=== PATIENT | male | born 1940 | race Caucasian/White ===

== ENCOUNTER 2018-11-06 02:36 | Emergency (ER) | payer MEDICARE, OTHER ==
--- NOTE | 2018-11-06 03:18 | EDM.PDOC ---
ED HPI GENERAL MEDICAL PROBLEM - General Stated Complaint: NEEDS A CATHETER [id number] Time Seen by Provider: 11/06/18 03:00 Source of Information: Reports: Patient History Limitations: Reports: No Limitations - History of Present Illness INITIAL COMMENTS - FREE TEXT/NARRATIVE: This 78 yo male patient reports to the Ed with lower abdominal pain. The patient reports he recently had a bladder tumor surgery and has not been able to urinate in the past 4-5 hours. The patient reports he has had the urge to urinate, but has not been able to. The patient reports prior to not being able to urinate he was having some blood in the urine. The patient is currently on Keflex after surgery. Onset: Today Duration: Hour(s):, Constant, Getting Worse Location: Reports: Abdomen Quality: Reports: Other Severity: Severe Improves with: Reports: None Worsens with: Reports: None Context: Reports: Other Associated Symptoms: Reports: No Other Symptoms Pelvic Pain Score (Numeric/FACES): 10 - Related Data Allergies Allergy/AdvReac Type Severity Reaction Status Date / Time NSAIDS (Non-Steroidal AdvReac Mild Abdominal Verified 11/06/18 03:03 Anti-Inflamma Pain Home Meds: Home Meds Ciclopirox [Penlac 8% Nail Lacquer] 1 applic TOP ASDIRECTED PRN 09/22/13 [ History] Multivitamin with Minerals [Multiple Vitamin] 1 tab PO DAILY 09/22/13 [History] Tacrolimus [Prograf] 1.5 mg PO DAILY 09/22/13 [History] Warfarin Sodium 2.5 mg PO .4XWEEK 09/22/13 [History] Warfarin Sodium 5 mg PO .3XWEEK 09/22/13 [History] amLODIPine [Norvasc] 7.5 mg PO DAILY 09/22/13 [History] Aspirin [Adult Low Dose Aspirin EC] 81 mg PO DAILY 04/20/18 [History] Glucosamine/D3/Boswellia Patricia [Osteo Bi-Flex Tablet] 1 each PO DAILY 04/20/18 [ History] LORazepam 0.5 mg PO BEDTIME 04/20/18 [History] Melatonin 3 mg PO BEDTIME 04/20/18 [History] Mycophenolate Mofetil [Cellcept] 750 mg PO BID 04/20/18 [History] [place]-3/DHA/Epa/Fish Oil [[place]-3 Fish Oil EC 1,000 mg] 1 each PO DAILY [History] Omeprazole 20 mg PO DAILY 04/20/18 [History] Zolpidem Tartrate 5 mg PO BEDTIME 04/20/18 [History] atorvaSTATin [Lipitor] 10 mg pe PO DAILY 04/20/18 [History] Past Medical History Cardiovascular History: Reports: High Cholesterol, Hypertension Respiratory History: Reports: None Gastrointestinal History: Reports: Diverticulosis Genitourinary History: Reports: Dialysis, Peritoneal, Renal Disease, Other (See Below) Other Genitourinary History: Hx of kidney transplant. Hx of renal artery stenosis. End stage renal disease Musculoskeletal History: Reports: None Neurological History: Reports: None Psychiatric History: Reports: Anxiety Hematologic History: Reports: Other (See Below) Other Hematologic History: Hx of Eosinophilia Immunologic History: Reports: None Oncologic (Cancer) History: Reports: None Dermatologic History: Reports: Other (See Below) Other Dermatologic History: Lipoma - Infectious Disease History Infectious Disease History: Reports: Chicken Pox, Measles, Mumps, Rubella - Past Surgical History Male Surgical History: Reports: None Social & Family History - Family History Family Medical History: Noncontributory - Tobacco Use Smoking Status *Q: Never Smoker - Caffeine Use Caffeine Use: Reports: Coffee - Recreational Drug Use Recreational Drug Use: No ED ROS GENERAL - Review of Systems Review Of Systems: ROS reveals no pertinent complaints other than HPI. ED EXAM, RENAL/ - Physical Exam Exam: See Below Exam Limited By: No Limitations General Appearance: Alert, WD/WN, Moderate Distress Eye Exam: Bilateral Eye: EOMI, Normal Inspection, PERRL Ears: Normal External Exam, Normal Canal, Hearing Grossly Normal, Normal TMs Nose: Normal Inspection, Normal Mucosa, No Blood Throat/Mouth: Normal Inspection, Normal Lips, Normal Teeth, Normal Gums, Normal Oropharynx, Normal Voice, No Airway Compromise Head: Atraumatic, Normocephalic Neck: Normal Inspection, Supple, Non-Tender, Full Range of Motion Respiratory/Chest: No Respiratory Distress, Lungs Clear, Normal Breath Sounds, No Accessory Muscle Use, Chest Non-Tender Cardiovascular: Normal Peripheral Pulses, Regular Rate, Rhythm, No Edema, No Gallop, No JVD, No Murmur, No Rub GI/Abdominal: Normal Bowel Sounds, Soft, No Organomegaly, No Distention, No Abnormal Bruit, No Mass, Pelvis Stable, Tender (initially, but no tenderness after catheter insertion and draining of the bladder) (Male) Exam: Deferred Rectal (Males) Exam: Deferred Back Exam: Normal Inspection, Full Range of Motion, NT Extremities: Normal Inspection, Normal Range of Motion, Non-Tender, Normal Capillary Refill, No Pedal Edema Neurological: Alert, Oriented, CN II-XII Intact, Normal Cognition, Normal Gait, Normal Reflexes, No Motor/Sensory Deficits Psychiatric: Normal Affect, Normal Mood Skin Exam: Warm, Dry, Intact, Normal Color, No Rash Lymphatic: No Adenopathy Course - Vital Signs Last Recorded V/S: Last Vital Signs Temp 37.5 C 11/06/18 03:04 Pulse 84 11/06/18 03:04 Resp 18 11/06/18 03:04 BP 128/65 11/06/18 03:04 Pulse Ox 94 L 11/06/18 03:04 - Orders/Labs/Meds Orders: Active Orders 24 hr Category Date Time Status Bladder Scan [RC] ASDIRECTED Care 11/06/18 02:42 Ordered Departure - Departure Time of Disposition: 03:15 Disposition: Home, Self-Care 01 Condition: Fair Clinical Impression: Postoperative urinary retention - Discharge Information *PRESCRIPTION DRUG MONITORING PROGRAM REVIEWED*: Not Applicable *COPY OF PRESCRIPTION DRUG MONITORING REPORT IN PATIENT DAYNE: Not Applicable Instructions: Indwelling Urinary Catheter Care, Adult, Acute Urinary Retention , Male, [id number] Forms: ED Department Discharge Care Plan Goals: The patient was advised of the examination results during the visit. A urinary catheter was placed to empty the patient's bladder. The catheter was left in place. The patient was advised to follow-up with his primary care facility on Thursday for catheter removal and further evaluation and treatment. The patient was encouraged to increase his oral fluid intake. If the patient has any additional symptoms or concerns, the patient should either return to the emergency department or visit his primary care facility. - My Orders Last 24 Hours: My Active Orders 11/06/18 02:42 Bladder Scan [RC] ASDIRECTED - Assessment/Plan Last 24 Hours: My Active Orders 11/06/18 02:42 Bladder Scan [RC] ASDIRECTED
== END 2018-11-06 03:28 | disposition home or self-care (01) ==
LOC: DL.ED 02:36
DX: N99.89 Other postprocedural complications and disorders of genitourinary system (principal); R33.8 Other retention of urine; F41.9 Anxiety disorder, unspecified; Z79.899 Other long term (current) drug therapy; Z79.01 Long term (current) use of anticoagulants; Z98.890 Other specified postprocedural states; Z88.8 Allergy status to other drugs, medicaments and biological substances
CPT/HCPCS: 51702; 51798; 99282; 99283

== ENCOUNTER 2020-03-06 14:38 | Inpatient (IN) | payer MEDICARE, OTHER ==
--- NOTE | 2020-03-06 15:05 | EDM.PDOC ---
ED HPI GENERAL MEDICAL PROBLEM - General Chief Complaint: Fever Stated Complaint: FEVER CHILLS COUGHING UP BLOOD Time Seen by Provider: 03/06/20 15:04 Source of Information: Reports: Patient, Old Records, RN, RN Notes Reviewed History Limitations: Reports: No Limitations - History of Present Illness INITIAL COMMENTS - FREE TEXT/NARRATIVE: Pt presents to ER from home by POV with c/o fever and coughing up coagulated blood. He continues to have fever, but has not coughed up much more blood since this morning. He has Hx of a renal transplant 2012, and bladder cancer with cystectomy and prostatectomy and urostomy last year. He is scheduled for pre-op for rotator cuff repair to left shoulder tomorrow. He normally coughs 3-4 times a day with clear or white sputum and has chronic dyspnea on exertion which is stable and unchanged. The only difference is coughing up coagulated blood today which he has never done before. He has never had a COVID test and denies and nausea, vomiting, abdominal pain, diarrhea, dysuria, flank pain, or worsening shortness of breath. Denies any unusual bruising. Onset: Today Location: Reports: Chest Quality: Reports: Other (Denies pain) Severity: Moderate Improves with: Reports: None Worsens with: Reports: None Associated Symptoms: Reports: No Other Symptoms Left Shoulder Pain Score (Numeric/FACES): 7 - Related Data Allergies Allergy/AdvReac Type Severity Reaction Status Date / Time NSAIDS (Non-Steroidal AdvReac Mild Abdominal Verified 03/06/20 15:30 Anti-Inflamma Pain Home Meds: Home Meds Ciclopirox [Penlac 8% Nail Lacquer] 1 applic TOP ASDIRECTED PRN 09/22/13 [History] Multivitamin with Minerals [Multiple Vitamin] 1 tab PO DAILY 09/22/13 [History] Warfarin Sodium 2.5 mg PO .4XWEEK 09/22/13 [History] Warfarin Sodium 5 mg PO .3XWEEK 09/22/13 [History] amLODIPine [Norvasc] 7.5 mg PO DAILY 09/22/13 [History] Aspirin [Adult Low Dose Aspirin EC] 81 mg PO DAILY 04/20/18 [History] Glucosamine/D3/Boswellia Patricia [Osteo Bi-Flex Tablet] 1 each PO DAILY 04/20/18 [History] LORazepam 0.5 mg PO BEDTIME 04/20/18 [History] Melatonin 3 mg PO BEDTIME 04/20/18 [History] [place]-3/DHA/Epa/Fish Oil [[place]-3 Fish Oil EC 1,000 mg] 1 each PO DAILY 04/20/18 [History] Omeprazole 20 mg PO DAILY 04/20/18 [History] Zolpidem Tartrate 5 mg PO BEDTIME 04/20/18 [History] atorvaSTATin [Lipitor] 10 mg pe PO DAILY 04/20/18 [History] mycophenolate mofetiL [Cellcept] 750 mg PO BID 04/20/18 [History] Tacrolimus [Prograf] 1 mg PO BID 03/06/20 [History] Past Medical History HEENT History: Reports: Impaired Vision Cardiovascular History: Reports: High Cholesterol, Hypertension Respiratory History: Reports: None Gastrointestinal History: Reports: Diverticulosis Genitourinary History: Reports: Dialysis, Peritoneal, Renal Disease, Urostomy, Other (See Below) Other Genitourinary History: Hx of kidney transplant. Hx of renal artery stenosis. End stage renal disease Bladder removal, clipped kidney, stoma for urination, bladder cancer Musculoskeletal History: Reports: None Neurological History: Reports: None Psychiatric History: Reports: Anxiety Hematologic History: Reports: Other (See Below) Other Hematologic History: Hx of Eosinophilia Immunologic History: Reports: None Oncologic (Cancer) History: Reports: Bladder Dermatologic History: Reports: Other (See Below) Other Dermatologic History: Lipoma - Infectious Disease History Infectious Disease History: Reports: Chicken Pox, Measles, Mumps, Rubella - Past Surgical History HEENT Surgical History: Reports: Cataract Surgery Male Surgical History: Reports: Nephrectomy Other Male Surgeries/Procedures: Kidney transplant Social & Family History - Family History Family Medical History: Noncontributory - Caffeine Use Caffeine Use: Reports: None - Living Situation & Occupation Living situation: Reports: , with Spouse Occupation: Retired ED ROS GENERAL - Review of Systems Review Of Systems: Comprehensive ROS is negative, except as noted in HPI. ED EXAM, SEPSIS - Physical Exam Exam: See Below Exam Limited By: No Limitations General Appearance: Alert, WD/WN, No Apparent Distress Eye Exam: Bilateral Eye: Normal Inspection Nose: Normal Inspection, Normal Mucosa, No Blood. No: Nasal Tenderness, Nasal Drainage Throat/Mouth: Normal Inspection, Normal Lips, Normal Oropharynx, Normal Voice, No Airway Compromise Head: Atraumatic, Normocephalic Neck: Normal Inspection, Supple, Non-Tender, Full Range of Motion Respiratory/Chest: No Respiratory Distress, No Accessory Muscle Use, Chest Non- Tender, Decreased Breath Sounds, Crackles (in B/L lower lung gutiérrez). No: Rales, Rhonchi, Wheezing, Stridor Cardiovascular: Regular Rate, Rhythm, Other (+2 pitting edema to knees (chronic/stable per pt)) GI/Abdominal Exam: Normal Bowel Sounds, Soft, Non-Tender, No Distention Back: Normal Inspection Extremities: Normal Capillary Refill, Pedal Edema, Other (Chronic left shoulder pain with decreased ROM) Neurological: Alert, Oriented, CN II-XII Intact, No Motor/Sensory Deficits Psychiatric: Normal Mood Skin: Warm, Dry, Intact, Normal Color, No Rash. No: Cyanosis, Ecchymosis, Jaundice, Petechiae, Rash Course - Vital Signs Last Recorded V/S: Last Vital Signs Temp 98.7 F 03/06/20 15:17 Pulse 96 03/06/20 15:17 Resp 16 03/06/20 15:17 BP 144/72 H 03/06/20 15:17 Pulse Ox 97 03/06/20 15:17 - Orders/Labs/Meds Orders: Active Orders 24 hr Category Date Time Status Peripheral IV Care [RC] . DIRECTED Care 03/06/20 15:07 Active CORONAVIRUS COVID-19 PCR PHL Stat Lab 03/06/20 17:50 Ordered CULTURE BLOOD [BC] Stat Lab 03/06/20 15:37 Received CULTURE BLOOD [BC] Stat Lab 03/06/20 15:42 Results Piperacillin/Tazobactam [Zosyn] 3.375 gm Med 03/06/20 17:33 Active Sodium Chloride 0.9% [Normal Saline] 100 ml IV ONETIME Sodium Chloride 0.9% [Normal Saline] 1,000 ml Med 03/06/20 17:45 Active IV ASDIRECTED Sodium Chloride 0.9% [Saline Flush] Med 03/06/20 15:07 Active 10 ml FLUSH ASDIRECTED PRN Blood Culture x2 Reflex Set [OM.PC] Stat Oth 03/06/20 15:06 Ordered Peripheral IV Insertion Adult [OM.PC] Stat Oth 03/06/20 15:06 Ordered Medication Orders Piperacillin Sod/Tazobactam (Sod 3.375 gm/ Sodium Chloride) 100 mls @ 200 mls/hr IV ONETIME ONE Stop: 03/06/20 18:02 Sodium Chloride (Normal Saline) 1,000 mls @ 150 mls/hr IV ASDIRECTED DAVID Sodium Chloride (Saline Flush) 10 ml FLUSH ASDIRECTED PRN PRN Reason: Keep Vein Open Last Admin: 03/06/20 16:46 Dose: 10 ml Documented by: MITCHEL Labs: Laboratory Tests 03/06/20 03/06/20 03/06/20 Range/Units 15:10 15:37 15:37 WBC 16.6 H (5.0-10.0) 10^3/uL RBC 4.53 L (4.6-6.2) 10^6/uL Hgb 12.6 L D (14.0-18.0) g/dL Hct 38.4 L (40.0-54.0) % MCV 84.8 D (80-100) fL MCH 27.8 (27.0-34.0) pg MCHC 32.8 L (33.0-35.0) g/dL Plt Count 436 D (150-450) 10^3/uL Neut % (Auto) 79.5 H (42.2-75.2) % Lymph % (Auto) 6.7 L (20.5-50.1) % [place] % (Auto) 13.2 H (2-8) % Eos % (Auto) 0.4 L (1.0-3.0) % Baso % (Auto) 0.2 (0.0-1.0) % PT 45.8 H (9.0-12.0) SEC INR 4.9 H (0.9-1.2) APTT 55.6 H (22.0-34.0) SEC Sodium (136-145) mmol/L Potassium (3.5-5.1) mmol/L Chloride (98-107) mmol/L Carbon Dioxide (21-32) mmol/L Anion Gap (7-13) mEq/L BUN (7-18) mg/dL Creatinine (0.70-1.30) mg/dL Est Cr Clr Drug Dosing mL/min Estimated GFR (MDRD) BUN/Creatinine Ratio (No establ ref range) Glucose (74-99) mg/dL Lactic Acid (0.4-2.0) mmol/L Calcium (8.5-10.1) mg/dL Phosphorus (2.6-4.7) mg/dL Magnesium (1.8-2.4) mg/dL Ferritin (26-388) mg/mL Total Bilirubin (0.2-1.0) mg/dL AST (15-37) U/L ALT (16-63) U/L Alkaline Phosphatase (46-116) U/L Lactate Dehydrogenase (85-227) U/L C-Reactive Protein (0.0-0.9) mg/dL B-Natriuretic Peptide (0-100) pg/ml Total Protein (6.4-8.2) g/dL Albumin (3.4-5.0) g/dL Globulin Albumin/Globulin Ratio Urine Color (YELLOW) Urine Appearance (CLEAR) Urine pH (5.0-9.0) Ur Specific [place] (1.005-1.030) Urine Protein (NEGATIVE) Urine Glucose (UA) (NEGATIVE) Urine Ketones (NEGATIVE) Urine Occult Blood (NEGATIVE) Urine Nitrite (NEGATIVE) Urine Bilirubin (NEGATIVE) Urine Urobilinogen (0.2-1.0) mg/dL Ur Leukocyte Esterase (NEGATIVE) Urine RBC /HPF Urine WBC (0-5/HPF) /HPF Ur Epithelial Cells (NOT SEEN) /HPF Triple Phos Crystals (NOT SEEN) /HPF Other Crystals (NOT SEEN) /HPF Amorphous Sediment (NOT SEEN) /HPF Urine Bacteria (0-FEW/HPF) /HPF Urine Mucus (NOT SEEN) /LPF SARS CoV-2 RNA Rapid ANA Negative (NEGATIVE) 03/06/20 03/06/20 03/06/20 Range/Units 15:37 15:37 15:37 WBC (5.0-10.0) 10^3/uL RBC (4.6-6.2) 10^6/uL Hgb (14.0-18.0) g/dL Hct (40.0-54.0) % MCV (80-100) fL MCH (27.0-34.0) pg MCHC (33.0-35.0) g/dL Plt Count (150-450) 10^3/uL Neut % (Auto) (42.2-75.2) % Lymph % (Auto) (20.5-50.1) % [place] % (Auto) (2-8) % Eos % (Auto) (1.0-3.0) % Baso % (Auto) (0.0-1.0) % PT (9.0-12.0) SEC INR (0.9-1.2) APTT (22.0-34.0) SEC Sodium 139 (136-145) mmol/L Potassium 4.5 (3.5-5.1) mmol/L Chloride 101 (98-107) mmol/L Carbon Dioxide 28 (21-32) mmol/L Anion Gap 14.5 H (7-13) mEq/L BUN 32 H (7-18) mg/dL Creatinine 2.26 H (0.70-1.30) mg/dL Est Cr Clr Drug Dosing 24.78 mL/min Estimated GFR (MDRD) 28 BUN/Creatinine Ratio 14.2 (No establ ref range) Glucose 172 H (74-99) mg/dL Lactic Acid 1.5 (0.4-2.0) mmol/L Calcium 9.2 (8.5-10.1) mg/dL Phosphorus 3.0 (2.6-4.7) mg/dL Magnesium 1.9 (1.8-2.4) mg/dL Ferritin 149 (26-388) mg/mL Total Bilirubin 1.5 H (0.2-1.0) mg/dL AST 10 L (15-37) U/L ALT 21 (16-63) U/L Alkaline Phosphatase 102 (46-116) U/L Lactate Dehydrogenase 181 (85-227) U/L C-Reactive Protein 11.9 H (0.0-0.9) mg/dL B-Natriuretic Peptide 22 (0-100) pg/ml Total Protein 7.2 (6.4-8.2) g/dL Albumin 3.2 L (3.4-5.0) g/dL Globulin 4.0 Albumin/Globulin Ratio 0.80 Urine Color (YELLOW) Urine Appearance (CLEAR) Urine pH (5.0-9.0) Ur Specific [place] (1.005-1.030) Urine Protein (NEGATIVE) Urine Glucose (UA) (NEGATIVE) Urine Ketones (NEGATIVE) Urine Occult Blood (NEGATIVE) Urine Nitrite (NEGATIVE) Urine Bilirubin (NEGATIVE) Urine Urobilinogen (0.2-1.0) mg/dL Ur Leukocyte Esterase (NEGATIVE) Urine RBC /HPF Urine WBC (0-5/HPF) /HPF Ur Epithelial Cells (NOT SEEN) /HPF Triple Phos Crystals (NOT SEEN) /HPF Other Crystals (NOT SEEN) /HPF Amorphous Sediment (NOT SEEN) /HPF Urine Bacteria (0-FEW/HPF) /HPF Urine Mucus (NOT SEEN) /LPF SARS CoV-2 RNA Rapid ANA (NEGATIVE) 03/06/20 Range/Units 17:05 WBC (5.0-10.0) 10^3/uL RBC (4.6-6.2) 10^6/uL Hgb (14.0-18.0) g/dL Hct (40.0-54.0) % MCV (80-100) fL MCH (27.0-34.0) pg MCHC (33.0-35.0) g/dL Plt Count (150-450) 10^3/uL Neut % (Auto) (42.2-75.2) % Lymph % (Auto) (20.5-50.1) % [place] % (Auto) (2-8) % Eos % (Auto) (1.0-3.0) % Baso % (Auto) (0.0-1.0) % PT (9.0-12.0) SEC INR (0.9-1.2) APTT (22.0-34.0) SEC Sodium (136-145) mmol/L Potassium (3.5-5.1) mmol/L Chloride (98-107) mmol/L Carbon Dioxide (21-32) mmol/L Anion Gap (7-13) mEq/L BUN (7-18) mg/dL Creatinine (0.70-1.30) mg/dL Est Cr Clr Drug Dosing mL/min Estimated GFR (MDRD) BUN/Creatinine Ratio (No establ ref range) Glucose (74-99) mg/dL Lactic Acid (0.4-2.0) mmol/L Calcium (8.5-10.1) mg/dL Phosphorus (2.6-4.7) mg/dL Magnesium (1.8-2.4) mg/dL Ferritin (26-388) mg/mL Total Bilirubin (0.2-1.0) mg/dL AST (15-37) U/L ALT (16-63) U/L Alkaline Phosphatase (46-116) U/L Lactate Dehydrogenase (85-227) U/L C-Reactive Protein (0.0-0.9) mg/dL B-Natriuretic Peptide (0-100) pg/ml Total Protein (6.4-8.2) g/dL Albumin (3.4-5.0) g/dL Globulin Albumin/Globulin Ratio Urine Color Yellow (YELLOW) Urine Appearance Turbid (CLEAR) Urine pH >= 9.0 (5.0-9.0) Ur Specific [place] 1.015 (1.005-1.030) Urine Protein 100 H (NEGATIVE) Urine Glucose (UA) Negative (NEGATIVE) Urine Ketones Negative (NEGATIVE) Urine Occult Blood Moderate H (NEGATIVE) Urine Nitrite Negative (NEGATIVE) Urine Bilirubin Negative (NEGATIVE) Urine Urobilinogen 0.2 (0.2-1.0) mg/dL Ur Leukocyte Esterase Negative (NEGATIVE) Urine RBC 10-20 H /HPF Urine WBC 0-5 (0-5/HPF) /HPF Ur Epithelial Cells Few (NOT SEEN) /HPF Triple Phos Crystals Few H (NOT SEEN) /HPF Other Crystals See note (NOT SEEN) /HPF Amorphous Sediment Few (NOT SEEN) /HPF Urine Bacteria Few (0-FEW/HPF) /HPF Urine Mucus Few H (NOT SEEN) /LPF SARS CoV-2 RNA Rapid ANA (NEGATIVE) Meds: Medications Generic Name Dose Route Start Last Admin Trade Name Freq PRN Reason Stop Dose Admin Piperacillin Sod/Tazobactam 100 mls @ 200 mls/hr 03/06/20 17:33 Sod 3.375 gm/ Sodium Chloride IV 03/06/20 18:02 ONETIME ONE Sodium Chloride 1,000 mls @ 150 mls/hr 03/06/20 17:45 Normal Saline IV ASDIRECTED DAVID Sodium Chloride 10 ml 03/06/20 15:07 03/06/20 16:46 Saline Flush FLUSH 10 ml ASDIRECTED PRN Administration Keep Vein Open Discontinued Medications Generic Name Dose Route Start Last Admin Trade Name Freq PRN Reason Stop Dose Admin Levofloxacin/Dextrose 500 mg/ 100 mls @ 100 mls/hr 03/06/20 16:33 03/06/20 16:45 Premix IV 03/06/20 17:32 100 mls/hr ONETIME ONE Administration - Radiology Interpretation Free Text/Narrative:: CT Chest: Isolated tiny nodule RLL. No signs of heart failure, pneumonia, or mass per Rad. report. - Re-Assessments/Exams Free Text/Narrative Re-Assessment/Exam: 03/06/20 18:[address] Paulson via phone. He advises pt should be admitted to [facility] without transfer to a higher level of care with IV hydration, Zosyn + Vanc omycin, observation of the high INR. Dr. Hernandez agrees to admit the pt, but is having technical problems with the computer and will ask Dr. Alejandre to take care of the admit at shift change. Departure - Departure Time of Disposition: 18:08 (admit to Dr. Hernandez) Disposition: Refer to Observation Condition: Undetermined Clinical Impression: Fever of unknown origin, Supratherapeutic INR - Discharge Information *PRESCRIPTION DRUG MONITORING PROGRAM REVIEWED*: Not Applicable *COPY OF PRESCRIPTION DRUG MONITORING REPORT IN PATIENT DAYNE: Not Applicable Forms: ED Department Discharge Sepsis Event Note (ED) - Focused Exam Vital Signs: Vital Signs Temp Pulse Resp BP Pulse Ox 03/06/20 15:17 98.7 F 96 16 144/72 H 97 - My Orders Last 24 Hours: My Active Orders 03/06/20 15:06 Blood Culture x2 Reflex Set [OM.PC] Stat Peripheral IV Insertion Adult [OM.PC] Stat 03/06/20 15:07 Peripheral IV Care [RC] . DIRECTED Sodium Chloride 0.9% [Saline Flush] 10 ml FLUSH ASDIRECTED PRN 03/06/20 15:37 CULTURE BLOOD [BC] Stat 03/06/20 15:42 CULTURE BLOOD [BC] Stat 03/06/20 17:33 Piperacillin/Tazobactam [Zosyn] 3.375 gm Sodium Chloride 0.9% [Normal Saline] 100 ml IV ONETIME 03/06/20 17:45 Sodium Chloride 0.9% [Normal Saline] 1,000 ml IV ASDIRECTED 03/06/20 17:50 CORONAVIRUS COVID-19 PCR PHL Stat - Assessment/Plan Last 24 Hours: My Active Orders 03/06/20 15:06 Blood Culture x2 Reflex Set [OM.PC] Stat Peripheral IV Insertion Adult [OM.PC] Stat 03/06/20 15:07 Peripheral IV Care [RC] . DIRECTED Sodium Chloride 0.9% [Saline Flush] 10 ml FLUSH ASDIRECTED PRN 03/06/20 15:37 CULTURE BLOOD [BC] Stat 03/06/20 15:42 CULTURE BLOOD [BC] Stat 03/06/20 17:33 Piperacillin/Tazobactam [Zosyn] 3.375 gm Sodium Chloride 0.9% [Normal Saline] 100 ml IV ONETIME 03/06/20 17:45 Sodium Chloride 0.9% [Normal Saline] 1,000 ml IV ASDIRECTED 03/06/20 17:50 CORONAVIRUS COVID-19 PCR PHL Stat
[2020-03-06] MEDS ORDERED: Sodium Chloride 0.9% 10 ML Syringe FLUSH PRN (15:07)
[2020-03-06 16:24] LABS: ANION GAP 14.5 mEq/L (7-13); PTT,PARTIAL THROMBOPLSTIN TIME 55.6 SEC (22.0-34.0)
[2020-03-06] MEDS ORDERED: Levofloxacin/Dextrose 5%-Water 500 MG in Premix Bag 1 BAG IV ONE (16:33)
--- NOTE | 2020-03-06 16:52 | CT ---
EXAMINATION: Chest wo Cont SEX: Male AGE: 79 years CLINICAL HISTORY: 79-year-old 175 pound hypertensive male with history of bladder cancer (2019) and earlier renal transplant (2013) who presents now with COUGH, FEVER AND HEMOPTYSIS. Note: This Immunosuppressed patient is currently COVID NEGATIVE. Scan technique: Volume acquisition of data emergency unenhanced CT scan of the chest (bony thorax, lungs and mediastinum) obtained with patient lying supine on the Siemens multislice scanner [place], [place]. All data archived in the PACS system for storage, reformatting axial/sagittal/coronal planes and study (lung/mediastinal and normal soft tissue windows). Interpretation: 1. Bilateral hydronephrosis with traumatic cortical thinning both kidneys. Gallbladder, unenhanced liver, stomach, spleen and pancreas unremarkable. Small hiatus hernia. 2. Normal cardiac silhouette. Coronary artery calcifications. No pericardial or pleural effusion. No pulmonary vascular congestion or alveolar edema. Normal caliber thoracic aorta. 3. Bibasilar platelike atelectasis. Small nodular density (central cavitation?) right lung base demonstrated on Coronal slice #44; axial slice #43. No other parenchymal lung nodule or mass lesion. No lobar pneumonia. 4. Peribronchial "cuffing". No peripheral "groundglass" density or pleural-based "wedge shaped" infarcts. 5. Mild kyphoscoliosis; multilevel disc disease; hypertrophic spondylosis dorsal spine. CONCLUSION: Isolated tiny nodule RLL. (See above). No signs of heart failure, lobar pneumonia or mass.
[2020-03-06] MEDS ORDERED: Piperacillin/Tazobactam 3.375 GM in Sodium Chloride 0.9% 100 ML IV ONE (17:33)
[2020-03-06] MEDS ORDERED: Sodium Chloride 0.9% 1,000 ML IV SCH (17:45)
[2020-03-06] MEDS ORDERED: Ondansetron 4 MG/2 ML SDV IVPUSH PRN (20:43)
[2020-03-06] MEDS ORDERED: Ondansetron 4 MG Tab.DIS PO PRN (20:43)
[2020-03-06] MEDS ORDERED: CICLOPIROX TOP PRN (20:50)
[2020-03-06] MEDS: Melatonin 3 MG Tab PO SCH (21:39)
[2020-03-06] MEDS: LORazepam 0.5 MG Tab PO SCH (21:39)
[2020-03-06] MEDS: amLODIPine 5 MG Tab PO SCH (21:40)
[2020-03-06] MEDS: Lactated Ringers 1,000 ML IV SCH (21:51)
[2020-03-07] MEDS: Piperacillin/Tazobactam 3.375 GM in Sodium Chloride 0.9% 100 ML IV SCH ×4 (03:24→20:29)
[2020-03-07] MEDS: Omeprazole 20 MG Cap.CR PO SCH (05:57)
[2020-03-07] MEDS: Lactated Ringers 1,000 ML IV SCH ×2 (06:21→16:30)
[2020-03-07 07:15] LABS: ANION GAP 12.4 mEq/L (7-13)
--- NOTE | 2020-03-07 08:51 | PCM.HP ---
H&P History of Present Illness - General Date of Service: 03/06/20 Admit Problem/Dx: Admission Diagnosis/Problem Admission Diagnosis/Problem Fever - History of Present Illness Initial Comments - Free Text/Narative: Mr. 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 Patient states that he has had chills for about a week. Patient reports that he coughed up blood in the morning and decided to come to the ED. States that he received renal transplant in 2012. Developed bladder cancer and underwent cystectomy and prostatectomy with ileal conduit last year. Reports that he has chronic cough at baseline the sputum has always been clear. Has dyspnea on exertion at baseline and this is unchanged. He denies any nausea, vomiting, diarrhea, constipation, melena, hematochezia, vision changes, hematuria, chest pain, or any acute symptoms. In the ED, patient was noted to have elevated creatinine. His PCP was called who indicated that he can be admitted here and started on antibiotics and IV fluids. Left Shoulder Pain Score (Numeric/FACES): 6 - Related Data Allergies/Adverse Reactions: Allergies Allergy/AdvReac Type Severity Reaction Status Date / Time NSAIDS (Non-Steroidal AdvReac Mild Abdominal Verified 03/06/20 18:13 Anti-Inflamma Pain Home Medications: Home Meds Ciclopirox [Penlac 8% Nail Lacquer] 1 applic TOP ASDIRECTED PRN 09/22/13 [History] Multivitamin with Minerals [Multiple Vitamin] 1 tab PO DAILY 09/22/13 [History] Warfarin Sodium 2.5 mg PO .4XWEEK 09/22/13 [History] Warfarin Sodium 5 mg PO .3XWEEK 09/22/13 [History] amLODIPine [Norvasc] 7.5 mg PO BEDTIME 09/22/13 [History] Aspirin [Adult Low Dose Aspirin EC] 81 mg PO DAILY 04/20/18 [History] LORazepam 0.5 mg PO BEDTIME 04/20/18 [History] Melatonin 3 mg PO BEDTIME 04/20/18 [History] [place]-3/DHA/Epa/Fish Oil [[place]-3 Fish Oil EC 1,000 mg] 1 each PO DAILY 04/20/18 [History] Omeprazole 20 mg PO DAILY 04/20/18 [History] atorvaSTATin [Lipitor] 10 mg pe PO DAILY 04/20/18 [History] Tacrolimus 2 mg PO BID 03/06/20 [History] Past Medical History HEENT History: Reports: Impaired Vision Cardiovascular History: Reports: High Cholesterol, Hypertension Respiratory History: Reports: None Gastrointestinal History: Reports: Diverticulosis Genitourinary History: Reports: Dialysis, Peritoneal, Renal Disease, Urostomy, Other (See Below) Other Genitourinary History: Hx of kidney transplant. Hx of renal artery stenosis. End stage renal disease Bladder removal, clipped kidney, stoma for urination, bladder cancer Musculoskeletal History: Reports: None Neurological History: Reports: None Psychiatric History: Reports: Anxiety Hematologic History: Reports: Other (See Below) Other Hematologic History: Hx of Eosinophilia Immunologic History: Reports: None Oncologic (Cancer) History: Reports: Bladder, Other (See Below) Other Oncologic History: skin cancer hx Dermatologic History: Reports: Other (See Below) Other Dermatologic History: Lipoma - Infectious Disease History Infectious Disease History: Reports: Chicken Pox, Measles, Mumps, Rubella - Past Surgical History HEENT Surgical History: Reports: Cataract Surgery Male Surgical History: Reports: Nephrectomy Other Male Surgeries/Procedures: Kidney transplant Social & Family History - Family History Family Medical History: Noncontributory - Tobacco Use Smoking Status *Q: Former Smoker Used Tobacco, but Quit: Yes Month/Year Tobacco Last Used: 1986 - Caffeine Use Caffeine Use: Reports: Coffee - Recreational Drug Use Recreational Drug Use: No - Living Situation & Occupation Living situation: Reports: , with Spouse Occupation: Retired H&P Review of Systems - Review of Systems: Review Of Systems: Comprehensive ROS is negative, except as noted in HPI. Exam - Exam Exam: See Below - Vital Signs Vital Signs: Last Vital Signs Temp 99 F 03/07/20 04:00 Pulse 64 03/07/20 04:00 Resp 20 03/07/20 04:00 BP 131/65 03/07/20 04:00 Pulse Ox 97 03/07/20 04:00 Weight: 170 lb - Exam General: Alert, Oriented, Cooperative, Mild Distress HEENT: Conjunctiva Clear, Hearing Intact, Mucosa Moist & [place] Neck: Supple, Trachea Midline Lungs: Clear to Auscultation, Normal Respiratory Effort Cardiovascular: Regular Rate, Regular Rhythm GI/Abdominal Exam: Normal Bowel Sounds, Soft, No Distention, Other (Abdominal surgical scars. Ileal conduit. Clear yellow urine in ileostomy bag.) Extremities: Normal Inspection, Non-Tender, No Pedal Edema Skin: Warm, Dry, Intact Neuro Extensive - Mental Status: Alert, Oriented x3, Normal Mood/Affect Psychiatric: Alert, Normal Affect, Normal Mood - Patient Data Lab Results Last 24 hrs: Laboratory Results - last 24 hr 03/06/20 03/06/20 03/06/20 Range/Units 15:10 15:37 15:37 WBC 16.6 H (5.0-10.0) 10^3/uL RBC 4.53 L (4.6-6.2) 10^6/uL Hgb 12.6 L D (14.0-18.0) g/dL Hct 38.4 L (40.0-54.0) % MCV 84.8 D (80-100) fL MCH 27.8 (27.0-34.0) pg MCHC 32.8 L (33.0-35.0) g/dL Plt Count 436 D (150-450) 10^3/uL Neut % (Auto) 79.5 H (42.2-75.2) % Lymph % (Auto) 6.7 L (20.5-50.1) % Barnes % (Auto) 13.2 H (2-8) % Eos % (Auto) 0.4 L (1.0-3.0) % Baso % (Auto) 0.2 (0.0-1.0) % PT 45.8 H (9.0-12.0) SEC INR 4.9 H (0.9-1.2) APTT 55.6 H (22.0-34.0) SEC Sodium (136-145) mmol/L Potassium (3.5-5.1) mmol/L Chloride (98-107) mmol/L Carbon Dioxide (21-32) mmol/L Anion Gap (7-13) mEq/L BUN (7-18) mg/dL Creatinine (0.70-1.30) mg/dL Est Cr Clr Drug Dosing mL/min Estimated GFR (MDRD) BUN/Creatinine Ratio (No establ ref range) Glucose (74-99) mg/dL Lactic Acid (0.4-2.0) mmol/L Calcium (8.5-10.1) mg/dL Phosphorus (2.6-4.7) mg/dL Magnesium (1.8-2.4) mg/dL Ferritin (26-388) mg/mL Total Bilirubin (0.2-1.0) mg/dL AST (15-37) U/L ALT (16-63) U/L Alkaline Phosphatase (46-116) U/L Lactate Dehydrogenase (85-227) U/L C-Reactive Protein (0.0-0.9) mg/dL B-Natriuretic Peptide (0-100) pg/ml Total Protein (6.4-8.2) g/dL Albumin (3.4-5.0) g/dL Globulin Albumin/Globulin Ratio Urine Color (YELLOW) Urine Appearance (CLEAR) Urine pH (5.0-9.0) Ur Specific [place] (1.005-1.030) Urine Protein (NEGATIVE) Urine Glucose (UA) (NEGATIVE) Urine Ketones (NEGATIVE) Urine Occult Blood (NEGATIVE) Urine Nitrite (NEGATIVE) Urine Bilirubin (NEGATIVE) Urine Urobilinogen (0.2-1.0) mg/dL Ur Leukocyte Esterase (NEGATIVE) Urine RBC /HPF Urine WBC (0-5/HPF) /HPF Ur Epithelial Cells (NOT SEEN) /HPF Triple Phos Crystals (NOT SEEN) /HPF Other Crystals (NOT SEEN) /HPF Amorphous Sediment (NOT SEEN) /HPF Urine Bacteria (0-FEW/HPF) /HPF Urine Mucus (NOT SEEN) /LPF SARS CoV-2 RNA Rapid ANA Negative (NEGATIVE) 03/06/20 03/06/20 03/06/20 Range/Units 15:37 15:37 15:37 WBC (5.0-10.0) 10^3/uL RBC (4.6-6.2) 10^6/uL Hgb (14.0-18.0) g/dL Hct (40.0-54.0) % MCV (80-100) fL MCH (27.0-34.0) pg MCHC (33.0-35.0) g/dL Plt Count (150-450) 10^3/uL Neut % (Auto) (42.2-75.2) % Lymph % (Auto) (20.5-50.1) % Barnes % (Auto) (2-8) % Eos % (Auto) (1.0-3.0) % Baso % (Auto) (0.0-1.0) % PT (9.0-12.0) SEC INR (0.9-1.2) APTT (22.0-34.0) SEC Sodium 139 (136-145) mmol/L Potassium 4.5 (3.5-5.1) mmol/L Chloride 101 (98-107) mmol/L Carbon Dioxide 28 (21-32) mmol/L Anion Gap 14.5 H (7-13) mEq/L BUN 32 H (7-18) mg/dL Creatinine 2.26 H (0.70-1.30) mg/dL Est Cr Clr Drug Dosing 24.78 mL/min Estimated GFR (MDRD) 28 BUN/Creatinine Ratio 14.2 (No establ ref range) Glucose 172 H (74-99) mg/dL Lactic Acid 1.5 (0.4-2.0) mmol/L Calcium 9.2 (8.5-10.1) mg/dL Phosphorus 3.0 (2.6-4.7) mg/dL Magnesium 1.9 (1.8-2.4) mg/dL Ferritin 149 (26-388) mg/mL Total Bilirubin 1.5 H (0.2-1.0) mg/dL AST 10 L (15-37) U/L ALT 21 (16-63) U/L Alkaline Phosphatase 102 (46-116) U/L Lactate Dehydrogenase 181 (85-227) U/L C-Reactive Protein 11.9 H (0.0-0.9) mg/dL B-Natriuretic Peptide 22 (0-100) pg/ml Total Protein 7.2 (6.4-8.2) g/dL Albumin 3.2 L (3.4-5.0) g/dL Globulin 4.0 Albumin/Globulin Ratio 0.80 Urine Color (YELLOW) Urine Appearance (CLEAR) Urine pH (5.0-9.0) Ur Specific [place] (1.005-1.030) Urine Protein (NEGATIVE) Urine Glucose (UA) (NEGATIVE) Urine Ketones (NEGATIVE) Urine Occult Blood (NEGATIVE) Urine Nitrite (NEGATIVE) Urine Bilirubin (NEGATIVE) Urine Urobilinogen (0.2-1.0) mg/dL Ur Leukocyte Esterase (NEGATIVE) Urine RBC /HPF Urine WBC (0-5/HPF) /HPF Ur Epithelial Cells (NOT SEEN) /HPF Triple Phos Crystals (NOT SEEN) /HPF Other Crystals (NOT SEEN) /HPF Amorphous Sediment (NOT SEEN) /HPF Urine Bacteria (0-FEW/HPF) /HPF Urine Mucus (NOT SEEN) /LPF SARS CoV-2 RNA Rapid ANA (NEGATIVE) 03/06/20 03/07/20 03/07/20 Range/Units 17:05 06:23 06:23 WBC 11.5 H (5.0-10.0) 10^3/uL RBC 3.83 L (4.6-6.2) 10^6/uL Hgb 10.5 L D (14.0-18.0) g/dL Hct 32.2 L (40.0-54.0) % MCV 84.1 (80-100) fL MCH 27.4 (27.0-34.0) pg MCHC 32.6 L (33.0-35.0) g/dL Plt Count 376 (150-450) 10^3/uL Neut % (Auto) (42.2-75.2) % Lymph % (Auto) (20.5-50.1) % Barnes % (Auto) (2-8) % Eos % (Auto) (1.0-3.0) % Baso % (Auto) (0.0-1.0) % PT (9.0-12.0) SEC INR (0.9-1.2) APTT (22.0-34.0) SEC Sodium 141 (136-145) mmol/L Potassium 4.4 (3.5-5.1) mmol/L Chloride 106 (98-107) mmol/L Carbon Dioxide 27 (21-32) mmol/L Anion Gap 12.4 (7-13) mEq/L BUN 28 H (7-18) mg/dL Creatinine 1.76 H (0.70-1.30) mg/dL Est Cr Clr Drug Dosing 31.82 mL/min Estimated GFR (MDRD) 38 BUN/Creatinine Ratio (No establ ref range) Glucose 92 (74-99) mg/dL Lactic Acid (0.4-2.0) mmol/L Calcium 8.5 (8.5-10.1) mg/dL Phosphorus 3.7 (2.6-4.7) mg/dL Magnesium 1.8 (1.8-2.4) mg/dL Ferritin (26-388) mg/mL Total Bilirubin (0.2-1.0) mg/dL AST (15-37) U/L ALT (16-63) U/L Alkaline Phosphatase (46-116) U/L Lactate Dehydrogenase (85-227) U/L C-Reactive Protein (0.0-0.9) mg/dL B-Natriuretic Peptide (0-100) pg/ml Total Protein (6.4-8.2) g/dL Albumin (3.4-5.0) g/dL Globulin Albumin/Globulin Ratio Urine Color Yellow (YELLOW) Urine Appearance Turbid (CLEAR) Urine pH >= 9.0 (5.0-9.0) Ur Specific [place] 1.015 (1.005-1.030) Urine Protein 100 H (NEGATIVE) Urine Glucose (UA) Negative (NEGATIVE) Urine Ketones Negative (NEGATIVE) Urine Occult Blood Moderate H (NEGATIVE) Urine Nitrite Negative (NEGATIVE) Urine Bilirubin Negative (NEGATIVE) Urine Urobilinogen 0.2 (0.2-1.0) mg/dL Ur Leukocyte Esterase Negative (NEGATIVE) Urine RBC 10-20 H /HPF Urine WBC 0-5 (0-5/HPF) /HPF Ur Epithelial Cells Few (NOT SEEN) /HPF Triple Phos Crystals Few H (NOT SEEN) /HPF Other Crystals See note (NOT SEEN) /HPF Amorphous Sediment Few (NOT SEEN) /HPF Urine Bacteria Few (0-FEW/HPF) /HPF Urine Mucus Few H (NOT SEEN) /LPF SARS CoV-2 RNA Rapid ANA (NEGATIVE) Result Diagrams: 03/07/20 06:23 03/07/20 06:23 [place] Results Last 24 hrs: Microbiology 03/06/20 15:42 Anaerobic Blood Culture - Final Blood - Venous - Lab Draw *Q Meaningful Use (ADM) - VTE *Q VTE Anticoagulation Contraindications: Med/TX Not Indicated/Need - Problem List (1) LONNY (acute kidney injury) SNOMED Code(s): 43404774, 27613990 ICD Code: N17.9 - ACUTE KIDNEY FAILURE, UNSPECIFIED Status: Acute Current Visit: Yes (2) Severe sepsis with acute organ dysfunction SNOMED Code(s): 45065515 ICD Code: A41.9 - SEPSIS, UNSPECIFIED ORGANISM; R65.20 - SEVERE SEPSIS WITHOUT SEPTIC SHOCK Status: Acute Current Visit: Yes (3) Fever of unknown origin SNOMED Code(s): 4589615 ICD Code: R50.9 - FEVER, UNSPECIFIED Status: Acute Current Visit: No (4) Hx of bladder cancer SNOMED Code(s): 754082850, 534071713 ICD Code: Z85.51 - PERSONAL HISTORY OF MALIGNANT NEOPLASM OF BLADDER Status: Acute Current Visit: No (5) Renal transplant recipient SNOMED Code(s): 817394804, 497659853 ICD Code: Z94.0 - KIDNEY TRANSPLANT STATUS Status: Acute Current Visit: No (6) Sepsis SNOMED Code(s): 56366532 ICD Code: A41.9 - SEPSIS, UNSPECIFIED ORGANISM Status: Acute Current Visit: No Qualifiers: Sepsis type: sepsis due to unspecified organism Sepsis acute organ dysfunction status: unspecified Qualified Code(s): A41.9 - Sepsis, unspecified organism (7) Supratherapeutic INR SNOMED Code(s): 547381929 ICD Code: R79.1 - ABNORMAL COAGULATION PROFILE Status: Acute Current Visit: No Problem List Initiated/Reviewed/Updated: Yes Orders Last 24hrs: Active Orders 24 hr Category Date Time Status Admission Diagnosis [ADT] Routine ADT 03/06/20 18:00 Ordered Admission Status [Patient Status] [ADT] Routine ADT 03/06/20 18:00 Active Antiembolic Devices [RC] 08,20 Care 03/07/20 08:29 Active Influenza Vaccine Charge [RC] .DISCHARGE Care 03/06/20 18:19 Active Intake and Output [RC] QSHIFT Care 03/06/20 20:45 Active Oxygen Therapy [RC] PRN Care 03/06/20 20:44 Active VTE/DVT Education [RC] PER UNIT ROUTINE Care 03/06/20 20:44 Active Vital Signs [RC] Q4H Care 03/06/20 20:44 Active 2 Gram Sodium Diet [DIET] Diet 03/06/20 Dinner Active CULTURE BLOOD [BC] Stat Lab 03/06/20 15:37 Received CULTURE BLOOD [BC] Stat Lab 03/06/20 15:42 Results Acetaminophen [TylenoL] Med 03/06/20 20:43 Active 650 mg PO Q4H PRN Aspirin [Halfprin] Med 03/07/20 09:00 Active 81 mg PO DAILY Ciclopirox [Penlac 8% Nail Lacquer] Med 03/06/20 20:50 Pending 1 applic TOP ASDIRECTED PRN Docusate Sodium/Sennosides [Senna Plus] Med 03/06/20 20:43 Active 1 tab PO BEDTIME PRN LORazepam [Ativan] Med 03/06/20 21:00 Active 0.5 mg PO BEDTIME Lactated Ringers [Ringers, Lactated] 1,000 ml Med 03/06/20 20:45 Active IV ASDIRECTED Melatonin Med 03/06/20 21:00 Active 3 mg PO BEDTIME Multivitamins,Therapeutic [Thera] Med 03/07/20 09:00 Active 1 each PO DAILY [place]-3/DHA/Epa/Fish Oil [[place]-3 Fish Oil EC 1,000 mg] Med 03/07/20 09:00 Pending 1 each PO DAILY Omeprazole Med 03/07/20 06:00 Active 20 mg PO ACBREAKFAST Ondansetron [Zofran ODT] Med 03/06/20 20:43 Active 4 mg PO Q6H PRN Ondansetron [Zofran] Med 03/06/20 20:43 Active 4 mg IVPUSH Q6H PRN Pharmacy to Dose - InFluenza V [Pharmacy to Dose - Med 03/06/20 18:18 Pending InFluenza Vaccine] 1 each IM ONETIME PRN Pharmacy to Dose - Warfarin Med 03/06/20 21:00 Pending 1 dose .XX ASDIRECTED Piperacillin/Tazobactam [Zosyn] 3.375 gm Med 03/07/20 03:00 Active Sodium Chloride 0.9% [Normal Saline] 100 ml IV Q6H Sodium Chloride 0.9% [Saline Flush] Med 03/06/20 15:07 Active 10 ml FLUSH ASDIRECTED PRN Tacrolimus Med 03/06/20 21:00 Pending 2 mg PO BID amLODIPine [Norvasc] Med 03/06/20 21:00 Active 7.5 mg PO BEDTIME atorvaSTATin [Lipitor] Med 03/07/20 09:00 Active 10 mg PO DAILY levoFLOXacin [Levaquin] Med 03/08/20 17:00 Active 500 mg PO Q48H Anticoagulation Contraindications VTE [AST] Per Unit Oth 03/06/20 20:43 Orde red Routine Blood Culture x2 Reflex Set [OM.PC] Stat Oth 03/06/20 15:06 Ordered Peripheral IV Insertion Adult [OM.PC] Stat Oth 03/06/20 15:06 Ordered EDDIE Hose [Antiembolic Hose] [OM.PC] Routine Oth 03/07/20 08:29 Ordered Resuscitation Status Routine Resus Stat 03/06/20 20:43 Ordered Medication Orders Acetaminophen (Tylenol) 650 mg PO Q4H PRN PRN Reason: Pain (Mild 1-3)/fever Amlodipine Besylate (Norvasc) 7.5 mg PO BEDTIME [facility] Last Admin: 03/06/20 21:40 Dose: 7.5 mg Documented by: NATHAN Aspirin (Halfprin) 81 mg PO DAILY [facility] Atorvastatin Calcium (Lipitor) 10 mg PO DAILY [facility] Lactated Ringer's (Ringers, Lactated) 1,000 mls @ 125 mls/hr IV ASDIRECTED [facility] Last Admin: 03/07/20 06:21 Dose: 125 mls/hr Documented by: Infusion: 03/07/20 05:51 Dose: 125 mls/hr Documented by: Admin: 03/06/20 21:51 Dose: 125 mls/hr Documented by: NATHAN Piperacillin Sod/Tazobactam (Sod 3.375 gm/ Sodium Chloride) 100 mls @ 200 mls/hr IV Q6H [facility] Last Admin: 03/07/20 03:24 Dose: 200 mls/hr Documented by: NATHAN Influenza Virus Vaccine (Pharmacy To Dose - Influenza Vaccine) 1 each IM ONETIME PRN PRN Reason: on discharge Levofloxacin (Levaquin) 500 mg PO Q48H [facility] Lorazepam (Ativan) 0.5 mg PO BEDTIME [facility] Last Admin: 03/06/20 21:39 Dose: 0.5 mg Documented by: NATHAN Melatonin (Melatonin) 3 mg PO BEDTIME [facility] Last Admin: 03/06/20 21:39 Dose: 3 mg Documented by: NATHAN Multivitamins (Thera) 1 each PO DAILY [facility] Non-Formulary Medication (Ciclopirox [Penlac 8% Nail Lacquer]) 1 applic TOP ASDIRECTED PRN PRN Reason: Other Non-Formulary Medication ([place]-3/Dha/Epa/Fish Oil [[place]-3 Fish Oil Ec 1,000 Mg]) 1 each PO DAILY [facility] Non-Formulary Medication (Tacrolimus) 2 mg PO BID [facility] Omeprazole (Omeprazole) 20 mg PO ACBREAKFAST DAVID Last Admin: 03/07/20 05:57 Dose: 20 mg Documented by: NATHAN Ondansetron HCl (Zofran Odt) 4 mg PO Q6H PRN PRN Reason: nausea, able to take PO Ondansetron HCl (Zofran) 4 mg IVPUSH Q6H PRN PRN Reason: Nausea/Vomiting Senna/Docusate Sodium (Senna Plus) 1 tab PO BEDTIME PRN PRN Reason: Constipation Last Admin: 03/06/20 21:40 Dose: 1 tab Documented by: NATHAN Sodium Chloride (Saline Flush) 10 ml FLUSH ASDIRECTED PRN PRN Reason: Keep Vein Open Last Admin: 03/06/20 16:46 Dose: 10 ml Documented by: MITCHEL Warfarin Sodium (Pharmacy To Dose - Warfarin) 1 dose .XX ASDIRECTED [facility] Assessment/Plan Comment:: #Severe sepsis with acute organ dysfunction: Patient with tachypnea and fever with temperature of 100.4 in the ED. With associated acute kidney injury. ED provider discussed with patient's primary care provider who recommended starting patient on antibiotics and IV fluids We will continue Levaquin and Zosyn Follow-up on cultures #History of DVT #Supratherapeutic INR Pharmacy to dose warfarin #Acquired single kidney #Status post disease donor kidney transplant Patient had transplant in July 15, 2012. Patient is on only Prograf for immunosuppression Not on CellCept or prednisone Patient's primary care provider our office hospitalization Continue to monitor renal function Avoid nephrotoxins #LONNY on CKD stage III: Patient's creatinine on presentation was 2.26. Seems to be higher than patient's baseline of 1.7 Continue to monitor renal function Avoid nephrotoxins Continue IV fluids DVT prophylaxis: On warfarin, pharmacy to dose GI prophylaxis: General diet CODE STATUS: Full code per patient and family preference.
[2020-03-07] MEDS: Multivitamins,Therapeutic Tab PO SCH (08:58)
[2020-03-07] MEDS ORDERED: EPA PO SCH (09:00)
[2020-03-07] MEDS ORDERED: DHA PO SCH (09:00)
[2020-03-07] MEDS ORDERED: atorvaSTATin 10 MG Tab PO SCH (09:00)
[2020-03-07] MEDS ORDERED: OMEGA PO SCH (09:00)
[2020-03-07] MEDS ORDERED: FISH OIL PO SCH (09:00)
[2020-03-07] MEDS ORDERED: Aspirin 81 MG Tab.EC PO SCH (09:00)
[2020-03-07] MEDS ORDERED: [UNRECOGNIZED DRUG - OTHER] PO SCH (09:00)
[2020-03-07] MEDS: TACROLIMUS 1 MG PO SCH ×3 (09:00→20:30)
--- NOTE | 2020-03-07 16:00 | PCM.PN ---
- General Info Date of Service: 03/07/20 Admission Dx/Problem (Free Text): Admission Diagnosis/Problem Admission Diagnosis/Problem Fever Subjective Update: No acute events overnight. Afebrile. No n/v/d/c, or hematuria. No chest pain or shortness of breath, no recurrence of hemoptysis. - Patient Data Vitals - Most Recent: Last Vital Signs Temp 98.8 F 03/07/20 12:00 Pulse 65 03/07/20 12:00 Resp 18 03/07/20 12:00 BP 138/76 03/07/20 12:00 Pulse Ox 96 03/07/20 12:00 Weight - Most Recent: 170 lb I&O - Last 24 Hours: Intake & Output 03/07/20 03/07/20 03/07/20 06:59 14:59 22:59 Intake Total 1380 980 105 Output Total 1850 1100 Balance -470 -120 105 Lab Results Last 24 Hours: Laboratory Results - last 24 hr 03/06/20 03/06/20 03/06/20 Range/Units 15:37 15:37 15:37 WBC 16.6 H (5.0-10.0) 10^3/uL RBC 4.53 L (4.6-6.2) 10^6/uL Hgb 12.6 L D (14.0-18.0) g/dL Hct 38.4 L (40.0-54.0) % MCV 84.8 D (80-100) fL MCH 27.8 (27.0-34.0) pg MCHC 32.8 L (33.0-35.0) g/dL Plt Count 436 D (150-450) 10^3/uL Neut % (Auto) 79.5 H (42.2-75.2) % Lymph % (Auto) 6.7 L (20.5-50.1) % [place] % (Auto) 13.2 H (2-8) % Eos % (Auto) 0.4 L (1.0-3.0) % Baso % (Auto) 0.2 (0.0-1.0) % PT 45.8 H (9.0-12.0) SEC INR 4.9 H (0.9-1.2) APTT 55.6 H (22.0-34.0) SEC Sodium 139 (136-145) mmol/L Potassium 4.5 (3.5-5.1) mmol/L Chloride 101 (98-107) mmol/L Carbon Dioxide 28 (21-32) mmol/L Anion Gap 14.5 H (7-13) mEq/L BUN 32 H (7-18) mg/dL Creatinine 2.26 H (0.70-1.30) mg/dL Est Cr Clr Drug Dosing 24.78 mL/min Estimated GFR (MDRD) 28 BUN/Creatinine Ratio 14.2 (No establ ref range) Glucose 172 H (74-99) mg/dL Lactic Acid (0.4-2.0) mmol/L Calcium 9.2 (8.5-10.1) mg/dL Phosphorus 3.0 (2.6-4.7) mg/dL Magnesium 1.9 (1.8-2.4) mg/dL Ferritin (26-388) mg/mL Total Bilirubin 1.5 H (0.2-1.0) mg/dL AST 10 L (15-37) U/L ALT 21 (16-63) U/L Alkaline Phosphatase 102 (46-116) U/L Lactate Dehydrogenase 181 (85-227) U/L C-Reactive Protein 11.9 H (0.0-0.9) mg/dL B-Natriuretic Peptide 22 (0-100) pg/ml Total Protein 7.2 (6.4-8.2) g/dL Albumin 3.2 L (3.4-5.0) g/dL Globulin 4.0 Albumin/Globulin Ratio 0.80 Urine Color (YELLOW) Urine Appearance (CLEAR) Urine pH (5.0-9.0) Ur Specific [place] (1.005-1.030) Urine Protein (NEGATIVE) Urine Glucose (UA) (NEGATIVE) Urine Ketones (NEGATIVE) Urine Occult Blood (NEGATIVE) Urine Nitrite (NEGATIVE) Urine Bilirubin (NEGATIVE) Urine Urobilinogen (0.2-1.0) mg/dL Ur Leukocyte Esterase (NEGATIVE) Urine RBC /HPF Urine WBC (0-5/HPF) /HPF Ur Epithelial Cells (NOT SEEN) /HPF Triple Phos Crystals (NOT SEEN) /HPF Other Crystals (NOT SEEN) /HPF Amorphous Sediment (NOT SEEN) /HPF Urine Bacteria (0-FEW/HPF) /HPF Urine Mucus (NOT SEEN) /LPF 03/06/20 03/06/20 03/06/20 Range/Units 15:37 15:37 17:05 WBC (5.0-10.0) 10^3/uL RBC (4.6-6.2) 10^6/uL Hgb (14.0-18.0) g/dL Hct (40.0-54.0) % MCV (80-100) fL MCH (27.0-34.0) pg MCHC (33.0-35.0) g/dL Plt Count (150-450) 10^3/uL Neut % (Auto) (42.2-75.2) % Lymph % (Auto) (20.5-50.1) % [place] % (Auto) (2-8) % Eos % (Auto) (1.0-3.0) % Baso % (Auto) (0.0-1.0) % PT (9.0-12.0) SEC INR (0.9-1.2) APTT (22.0-34.0) SEC Sodium (136-145) mmol/L Potassium (3.5-5.1) mmol/L Chloride (98-107) mmol/L Carbon Dioxide (21-32) mmol/L Anion Gap (7-13) mEq/L BUN (7-18) mg/dL Creatinine (0.70-1.30) mg/dL Est Cr Clr Drug Dosing mL/min Estimated GFR (MDRD) BUN/Creatinine Ratio (No establ ref range) Glucose (74-99) mg/dL Lactic Acid 1.5 (0.4-2.0) mmol/L Calcium (8.5-10.1) mg/dL Phosphorus (2.6-4.7) mg/dL Magnesium (1.8-2.4) mg/dL Ferritin 149 (26-388) mg/mL Total Bilirubin (0.2-1.0) mg/dL AST (15-37) U/L ALT (16-63) U/L Alkaline Phosphatase (46-116) U/L Lactate Dehydrogenase (85-227) U/L C-Reactive Protein (0.0-0.9) mg/dL B-Natriuretic Peptide (0-100) pg/ml Total Protein (6.4-8.2) g/dL Albumin (3.4-5.0) g/dL Globulin Albumin/Globulin Ratio Urine Color Yellow (YELLOW) Urine Appearance Turbid (CLEAR) Urine pH >= 9.0 (5.0-9.0) Ur Specific [place] 1.015 (1.005-1.030) Urine Protein 100 H (NEGATIVE) Urine Glucose (UA) Negative (NEGATIVE) Urine Ketones Negative (NEGATIVE) Urine Occult Blood Moderate H (NEGATIVE) Urine Nitrite Negative (NEGATIVE) Urine Bilirubin Negative (NEGATIVE) Urine Urobilinogen 0.2 (0.2-1.0) mg/dL Ur Leukocyte Esterase Negative (NEGATIVE) Urine RBC 10-20 H /HPF Urine WBC 0-5 (0-5/HPF) /HPF Ur Epithelial Cells Few (NOT SEEN) /HPF Triple Phos Crystals Few H (NOT SEEN) /HPF Other Crystals See note (NOT SEEN) /HPF Amorphous Sediment Few (NOT SEEN) /HPF Urine Bacteria Few (0-FEW/HPF) /HPF Urine Mucus Few H (NOT SEEN) /LPF 03/07/20 03/07/20 03/07/20 Range/Units 06:23 06:23 06:23 WBC 11.5 H (5.0-10.0) 10^3/uL RBC 3.83 L (4.6-6.2) 10^6/uL Hgb 10.5 L D (14.0-18.0) g/dL Hct 32.2 L (40.0-54.0) % MCV 84.1 (80-100) fL MCH 27.4 (27.0-34.0) pg MCHC 32.6 L (33.0-35.0) g/dL Plt Count 376 (150-450) 10^3/uL Neut % (Auto) (42.2-75.2) % Lymph % (Auto) (20.5-50.1) % [place] % (Auto) (2-8) % Eos % (Auto) (1.0-3.0) % Baso % (Auto) (0.0-1.0) % PT 41.0 H (9.0-12.0) SEC INR 4.4 H (0.9-1.2) APTT (22.0-34.0) SEC Sodium 141 (136-145) mmol/L Potassium 4.4 (3.5-5.1) mmol/L Chloride 106 (98-107) mmol/L Carbon Dioxide 27 (21-32) mmol/L Anion Gap 12.4 (7-13) mEq/L BUN 28 H (7-18) mg/dL Creatinine 1.76 H (0.70-1.30) mg/dL Est Cr Clr Drug Dosing 31.82 mL/min Estimated GFR (MDRD) 38 BUN/Creatinine Ratio (No establ ref range) Glucose 92 (74-99) mg/dL Lactic Acid (0.4-2.0) mmol/L Calcium 8.5 (8.5-10.1) mg/dL Phosphorus 3.7 (2.6-4.7) mg/dL Magnesium 1.8 (1.8-2.4) mg/dL Ferritin (26-388) mg/mL Total Bilirubin (0.2-1.0) mg/dL AST (15-37) U/L ALT (16-63) U/L Alkaline Phosphatase (46-116) U/L Lactate Dehydrogenase (85-227) U/L C-Reactive Protein (0.0-0.9) mg/dL B-Natriuretic Peptide (0-100) pg/ml Total Protein (6.4-8.2) g/dL Albumin (3.4-5.0) g/dL Globulin Albumin/Globulin Ratio Urine Color (YELLOW) Urine Appearance (CLEAR) Urine pH (5.0-9.0) Ur Specific [place] (1.005-1.030) Urine Protein (NEGATIVE) Urine Glucose (UA) (NEGATIVE) Urine Ketones (NEGATIVE) Urine Occult Blood (NEGATIVE) Urine Nitrite (NEGATIVE) Urine Bilirubin (NEGATIVE) Urine Urobilinogen (0.2-1.0) mg/dL Ur Leukocyte Esterase (NEGATIVE) Urine RBC /HPF Urine WBC (0-5/HPF) /HPF Ur Epithelial Cells (NOT SEEN) /HPF Triple Phos Crystals (NOT SEEN) /HPF Other Crystals (NOT SEEN) /HPF Amorphous Sediment (NOT SEEN) /HPF Urine Bacteria (0-FEW/HPF) /HPF Urine Mucus (NOT SEEN) /LPF [place] Results Last 24 Hours: Microbiology 03/06/20 15:42 Aerobic Blood Culture - Preliminary Blood - Venous - Lab Draw NO GROWTH AFTER 1 DAY Anaerobic Blood Culture - Final 10/06/20 15:37 Aerobic Blood Culture - Preliminary Blood - Venous NO GROWTH AFTER 1 DAY Anaerobic Blood Culture - Preliminary NO GROWTH AFTER 1 DAY Med Orders - Current: Current Medications Acetaminophen (Tylenol) 650 mg PO Q4H PRN PRN Reason: Pain (Mild 1-3)/fever Amlodipine Besylate (Norvasc) 7.5 mg PO BEDTIME [facility] Last Admin: 03/06/20 21:40 Dose: 7.5 mg Documented by: Aspirin (Halfprin) 81 mg PO DAILY@2100 DAVID Atorvastatin Calcium (Lipitor) 10 mg PO DAILY@2100 [facility] Lactated Ringer's (Ringers, Lactated) 1,000 mls @ 125 mls/hr IV ASDIRECTED [facility] Last Admin: 03/07/20 06:21 Dose: 125 mls/hr Documented by: Piperacillin Sod/Tazobactam (Sod 3.375 gm/ Sodium Chloride) 100 mls @ 200 mls/hr IV Q6H [facility] Last Infusion: 03/07/20 15:10 Dose: Infused Documented by: Influenza Virus Vaccine (Pharmacy To Dose - Influenza Vaccine) 1 each IM DAILY [facility] Levofloxacin (Levaquin) 500 mg PO Q48H [facility] Lorazepam (Ativan) 0.5 mg PO BEDTIME [facility] Last Admin: 03/06/20 21:39 Dose: 0.5 mg Documented by: Melatonin (Melatonin) 3 mg PO BEDTIME [facility] Last Admin: 03/06/20 21:39 Dose: 3 mg Documented by: Multivitamins (Thera) 1 each PO DAILY [facility] Last Admin: 03/07/20 08:58 Dose: 1 each Documented by: Tacrolimus 1 Mg Pt (Own Med) 0 mg PO BID [facility] Last Admin: 03/07/20 14:25 Dose: Not Given Documented by: Omeprazole (Omeprazole) 20 mg PO ACBREAKFAST [facility] Last Admin: 03/07/20 05:57 Dose: 20 mg Documented by: Ondansetron HCl (Zofran Odt) 4 mg PO Q6H PRN PRN Reason: nausea, able to take PO Ondansetron HCl (Zofran) 4 mg IVPUSH Q6H PRN PRN Reason: Nausea/Vomiting Senna/Docusate Sodium (Senna Plus) 1 tab PO BEDTIME PRN PRN Reason: Constipation Last Admin: 03/06/20 21:40 Dose: 1 tab Documented by: Sodium Chloride (Saline Flush) 10 ml FLUSH ASDIRECTED PRN PRN Reason: Keep Vein Open Last Admin: 03/06/20 16:46 Dose: 10 ml Documented by: Warfarin Sodium (Pharmacy To Dose - Warfarin) 1 dose .XX ASDIRECTED [facility] Discontinued Medications Aspirin (Halfprin) 81 mg PO DAILY [facility] Last Admin: 03/07/20 09:00 Dose: Not Given Documented by: Atorvastatin Calcium (Lipitor) 10 mg PO DAILY [facility] Last Admin: 03/07/20 08:58 Dose: 10 mg Documented by: Levofloxacin/Dextrose 500 mg/ (Premix) 100 mls @ 100 mls/hr IV ONETIME ONE Stop: 03/06/20 17:32 Last Admin: 03/06/20 16:45 Dose: 100 mls/hr Documented by: Piperacillin Sod/Tazobactam (Sod 3.375 gm/ Sodium Chloride) 100 mls @ 200 mls/hr IV ONETIME ONE Stop: 03/06/20 18:02 Last Admin: 03/06/20 18:47 Dose: 200 mls/hr Documented by: Sodium Chloride (Normal Saline) 1,000 mls @ 150 mls/hr IV ASDIRECTED [facility] Last Admin: 03/06/20 18:47 Dose: 150 mls/hr Documented by: Non-Formulary Medication (Ciclopirox [Penlac 8% Nail Lacquer]) 1 applic TOP ASDIRECTED PRN PRN Reason: Other Non-Formulary Medication ([place]-3/Dha/Epa/Fish Oil [[place]-3 Fish Oil Ec 1,000 Mg]) 1 each PO DAILY [facility] Last Admin: 03/07/20 12:34 Dose: Not Given Documented by: No Warfarin Today () 0 each PO ONETIME ONE Stop: 03/07/20 14:01 Last Admin: 03/07/20 13:55 Dose: Not Given Documented by: - Exam General: Alert, Oriented, Cooperative, No Acute Distress HEENT: Pupils Equal, Pupils Reactive, EOMI, Mucous Membr. Moist/[place] Neck: Supple Lungs: Clear to Auscultation, Normal Respiratory Effort Cardiovascular: Regular Rate, Regular Rhythm GI/Abdominal Exam: Normal Bowel Sounds, Soft, Non-Tender, Other (Surgical scars, ileal conduit with clear urine. ) Extremities: Normal Inspection, Non-Tender, No Pedal Edema Skin: Warm, Dry, Intact Psy/Mental Status: Alert, Normal Affect, Normal Mood Sepsis Event Note - Evaluation Sepsis Screening Result: No Definite Risk - Focused Exam Vital Signs: Vital Signs Temp Pulse Resp BP BP Pulse Ox 03/07/20 12:00 98.8 F 65 18 138/76 96 03/07/20 08:00 99.0 F 72 18 143/76 H 96 03/07/20 04:00 99 F 64 20 131/65 97 - Problem List & Annotations (1) LONNY (acute kidney injury) SNOMED Code(s): 82207987, 77621315 Code(s): N17.9 - ACUTE KIDNEY FAILURE, UNSPECIFIED Status: Acute Current Visit: Yes (2) Severe sepsis with acute organ dysfunction SNOMED Code(s): 23320172 Code(s): A41.9 - SEPSIS, UNSPECIFIED ORGANISM; R65.20 - SEVERE SEPSIS WITHOUT SEPTIC SHOCK Status: Acute Current Visit: Yes (3) Fever of unknown origin SNOMED Code(s): 3008528 Code(s): R50.9 - FEVER, UNSPECIFIED Status: Acute Current Visit: No (4) Hx of bladder cancer SNOMED Code(s): 778491222, 763816978 Code(s): Z85.51 - PERSONAL HISTORY OF MALIGNANT NEOPLASM OF BLADDER Status: Acute Current Visit: No (5) Renal transplant recipient SNOMED Code(s): 565288544, 178742305 Code(s): Z94.0 - KIDNEY TRANSPLANT STATUS Status: Acute Current Visit: No (6) Sepsis SNOMED Code(s): 83237706 Code(s): A41.9 - SEPSIS, UNSPECIFIED ORGANISM Status: Acute Current Visit: No Qualifiers: Sepsis type: sepsis due to unspecified organism Sepsis acute organ dysfunction status: unspecified Qualified Code(s): A41.9 - Sepsis, unspecified organism (7) Supratherapeutic INR SNOMED Code(s): 295307175 Code(s): R79.1 - ABNORMAL COAGULATION PROFILE Status: Acute Current Visit: No - Problem List Review Problem List Initiated/Reviewed/Updated: Yes - My Orders Last 24 Hours: My Active Orders 03/06/20 Dinner 2 Gram Sodium Diet [DIET] 03/06/20 20:43 Acetaminophen [TylenoL] 650 mg PO Q4H PRN Docusate Sodium/Sennosides [Senna Plus] 1 tab PO BEDTIME PRN Ondansetron [Zofran ODT] 4 mg PO Q6H PRN Ondansetron [Zofran] 4 mg IVPUSH Q6H PRN Anticoagulation Contraindications VTE [AST] Per Unit Routine Resuscitation Status Routine 03/06/20 20:44 Oxygen Therapy [RC] PRN VTE/DVT Education [RC] PER UNIT ROUTINE Vital Signs [RC] Q4H 03/06/20 20:45 Intake and Output [RC] QSHIFT Lactated Ringers [Ringers, Lactated] 1,000 ml IV ASDIRECTED 03/06/20 21:00 LORazepam [Ativan] 0.5 mg PO BEDTIME Melatonin 3 mg PO BEDTIME Pharmacy to Dose - Warfarin 1 dose .XX ASDIRECTED amLODIPine [Norvasc] 7.5 mg PO BEDTIME 03/07/20 03:00 Piperacillin/Tazobactam [Zosyn] 3.375 gm Sodium Chloride 0.9% [Normal Saline] 100 ml IV Q6H 03/07/20 06:00 Omeprazole 20 mg PO ACBREAKFAST 03/07/20 08:29 Antiembolic Devices [RC] 08,20 EDDIE Hose [Antiembolic Hose] [OM.PC] Routine 03/07/20 08:51 Patient Status [ADT] Routine 03/07/20 09:00 Multivitamins,Therapeutic [Thera] 1 each PO DAILY 03/07/20 14:10 Up ad Candie [RC] ASDIRECTED 03/07/20 21:00 Aspirin [Halfprin] 81 mg PO DAILY@209903/08/20 05:11 BASIC METABOLIC PANEL,BMP [CHEM] AM CBC W/O DIFF,HEMOGRAM [HEME] AM MAGNESIUM [CHEM] AM 03/08/20 10:04 INR,PT,PROTHROMBIN TIME [COAG] DAILY 03/08/20 17:00 levoFLOXacin [Levaquin] 500 mg PO Q48H 03/08/20 21:00 atorvaSTATin [Lipitor] 10 mg PO DAILY@209903/09/20 10:04 INR,PT,PROTHROMBIN TIME [COAG] DAILY 03/10/20 10:04 INR,PT,PROTHROMBIN TIME [COAG] DAILY 03/11/20 10:04 INR,PT,PROTHROMBIN TIME [COAG] DAILY 03/12/20 10:04 INR,PT,PROTHROMBIN TIME [COAG] DAILY 03/13/20 10:04 INR,PT,PROTHROMBIN TIME [COAG] DAILY - Plan Plan:: #Severe sepsis with acute organ dysfunction: Patient with tachypnea and fever with temperature of 100.4 in the ED. With associated acute kidney injury. 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 -Patient is on only Prograf for immunosuppression -Not on CellCept or prednisone -Patient's primary care provider our office hospitalization -Continue to monitor renal function -Avoid nephrotoxins -#LONNY on CKD stage III: Patient's creatinine on presentation was 2.26. -Seems to be higher than patient's baseline of 1.7 -Continue to monitor renal function -Avoid nephrotoxins -Continue IV fluids DVT prophylaxis: On warfarin, pharmacy to dose GI prophylaxis: General diet CODE STATUS: Full code per patient and family preference.
[2020-03-07] MEDS: Acetaminophen 325 MG Tab PO PRN (19:32)
[2020-03-07] MEDS: LORazepam 0.5 MG Tab PO SCH (20:28)
[2020-03-07] MEDS: amLODIPine 5 MG Tab PO SCH (20:28)
[2020-03-07] MEDS: Melatonin 3 MG Tab PO SCH (20:29)
[2020-03-07] MEDS: Aspirin 81 MG Tab.EC PO SCH (20:29)
[2020-03-08] MEDS: Acetaminophen 325 MG Tab PO PRN (00:38)
[2020-03-08] MEDS: Lactated Ringers 1,000 ML IV SCH ×2 (00:39→09:11)
[2020-03-08] MEDS: Piperacillin/Tazobactam 3.375 GM in Sodium Chloride 0.9% 100 ML IV SCH ×4 (02:35→23:42)
[2020-03-08] MEDS: Omeprazole 20 MG Cap.CR PO SCH (05:40)
[2020-03-08 07:05] LABS: ANION GAP 13.4 mEq/L (7-13)
[2020-03-08] MEDS: Multivitamins,Therapeutic Tab PO SCH (08:06)
[2020-03-08] MEDS: TACROLIMUS 1 MG PO SCH ×2 (08:07→20:55)
--- NOTE | 2020-03-08 11:58 | PCM.PN ---
- General Info Date of Service: 03/08/20 Admission Dx/Problem (Free Text): Admission Diagnosis/Problem Admission Diagnosis/Problem Fever Subjective Update: Had a temp of 100.7 this morning. Had 3 episodes of watery stools. Reports shoulder pain. No n/v//c, or hematuria. No chest pain or shortness of breath, no recurrence of hemoptysis. - Patient Data Vitals - Most Recent: Last Vital Signs Temp 99.8 F 03/08/20 06:54 Pulse 72 03/08/20 06:54 Resp 18 03/08/20 06:54 BP 137/71 03/08/20 06:54 Pulse Ox 95 03/08/20 06:54 Weight - Most Recent: 170 lb I&O - Last 24 Hours: Intake & Output 03/07/20 03/08/20 03/08/20 22:59 06:59 14:59 Intake Total 525 Output Total 1450 1025 700 Balance -925 1024 -700 Lab Results Last 24 Hours: Laboratory Results - last 24 hr 03/08/20 03/08/20 03/08/20 Range/Units 06:25 06:25 06:25 WBC 8.8 (5.0-10.0) 10^3/uL RBC 3.83 L (4.6-6.2) 10^6/uL Hgb 10.7 L (14.0-18.0) g/dL Hct 32.8 L (40.0-54.0) % MCV 85.6 (80-100) fL MCH 27.9 (27.0-34.0) pg MCHC 32.6 L (33.0-35.0) g/dL Plt Count 404 (150-450) 10^3/uL PT 26.6 H D (9.0-12.0) SEC INR 2.8 H (0.9-1.2) Sodium 145 (136-145) mmol/L Potassium 4.4 (3.5-5.1) mmol/L Chloride 109 H (98-107) mmol/L Carbon Dioxide 27 (21-32) mmol/L Anion Gap 13.4 H (7-13) mEq/L BUN 22 H (7-18) mg/dL Creatinine 1.78 H (0.70-1.30) mg/dL Est Cr Clr Drug Dosing 31.46 mL/min Estimated GFR (MDRD) 37 Glucose 85 (74-99) mg/dL Calcium 8.3 L (8.5-10.1) mg/dL Magnesium 1.6 L (1.8-2.4) mg/dL [place] Results Last 24 Hours: Microbiology 03/06/20 15:42 Aerobic Blood Culture - Preliminary Blood - Venous - Lab Draw NO GROWTH AFTER 1 DAY Anaerobic Blood Culture - Final 03/06/20 15:37 Aerobic Blood Culture - Preliminary Blood - Venous NO GROWTH AFTER 1 DAY Anaerobic Blood Culture - Preliminary NO GROWTH AFTER 1 DAY Med Orders - Current: Current Medications Acetaminophen (Tylenol) 650 mg PO Q4H PRN PRN Reason: Pain (Mild 1-3)/fever Last Admin: 03/08/20 00:38 Dose: 650 mg Documented by: Amlodipine Besylate (Norvasc) 7.5 mg PO BEDTIME [facility] Last Admin: 03/07/20 20:28 Dose: 7.5 mg Documented by: Aspirin (Halfprin) 81 mg PO DAILY@2100 [facility] Last Admin: 03/07/20 20:29 Dose: 81 mg Documented by: Atorvastatin Calcium (Lipitor) 10 mg PO DAILY@2100 [facility] Lactated Ringer's (Ringers, Lactated) 1,000 mls @ 125 mls/hr IV ASDIRECTED [facility] Last Admin: 03/08/20 09:11 Dose: 125 mls/hr Documented by: Piperacillin Sod/Tazobactam (Sod 3.375 gm/ Sodium Chloride) 100 mls @ 200 mls/hr IV Q6HR [facility] Influenza Virus Vaccine (Pharmacy To Dose - Influenza Vaccine) 1 each IM DAILY [facility] Last Admin: 03/08/20 10:57 Dose: Not Given Documented by: Levofloxacin (Levaquin) 500 mg PO Q48H [facility] Lorazepam (Ativan) 0.5 mg PO BEDTIME [facility] Last Admin: 03/07/20 20:28 Dose: 0.5 mg Documented by: Melatonin (Melatonin) 3 mg PO BEDTIME [facility] Last Admin: 03/07/20 20:29 Dose: 3 mg Documented by: Multivitamins (Thera) 1 each PO DAILY [facility] Last Admin: 03/08/20 08:06 Dose: 1 each Documented by: Tacrolimus 1 Mg Pt (Own Med) 0 mg PO BID [facility] Last Admin: 03/08/20 08:07 Dose: 2 mg Documented by: Omeprazole (Omeprazole) 20 mg PO ACBREAKFAST [facility] Last Admin: 03/08/20 05:40 Dose: 20 mg Documented by: Ondansetron HCl (Zofran Odt) 4 mg PO Q6H PRN PRN Reason: nausea, able to take PO Ondansetron HCl (Zofran) 4 mg IVPUSH Q6H PRN PRN Reason: Nausea/Vomiting Senna/Docusate Sodium (Senna Plus) 1 tab PO BEDTIME PRN PRN Reason: Constipation Last Admin: 03/06/20 21:40 Dose: 1 tab Documented by: Sodium Chloride (Saline Flush) 10 ml FLUSH ASDIRECTED PRN PRN Reason: Keep Vein Open Last Admin: 03/06/20 16:46 Dose: 10 ml Documented by: Warfarin Sodium (Pharmacy To Dose - Warfarin) 1 dose .XX ASDIRECTED [facility] Warfarin Sodium (Coumadin) 1 mg PO ONETIME ONE Stop: 03/08/20 14:01 Discontinued Medications Aspirin (Halfprin) 81 mg PO DAILY [facility] Last Admin: 03/07/20 09:00 Dose: Not Given Documented by: Atorvastatin Calcium (Lipitor) 10 mg PO DAILY [facility] Last Admin: 03/07/20 08:58 Dose: 10 mg Documented by: Levofloxacin/Dextrose 500 mg/ (Premix) 100 mls @ 100 mls/hr IV ONETIME ONE Stop: 03/06/20 17:32 Last Admin: 03/06/20 16:45 Dose: 100 mls/hr Documented by: Piperacillin Sod/Tazobactam (Sod 3.375 gm/ Sodium Chloride) 100 mls @ 200 mls/hr IV ONETIME ONE Stop: 03/06/20 18:02 Last Admin: 03/06/20 18:47 Dose: 200 mls/hr Documented by: Sodium Chloride (Normal Saline) 1,000 mls @ 150 mls/hr IV ASDIRECTED [facility] Last Admin: 03/06/20 18:47 Dose: 150 mls/hr Documented by: Piperacillin Sod/Tazobactam (Sod 3.375 gm/ Sodium Chloride) 100 mls @ 200 mls/hr IV Q6H [facility] Last Admin: 03/08/20 02:35 Dose: 200 mls/hr Documented by: Non-Formulary Medication (Ciclopirox [Penlac 8% Nail Lacquer]) 1 applic TOP ASDIRECTED PRN PRN Reason: Other Non-Formulary Medication ([place]-3/Dha/Epa/Fish Oil [[place]-3 Fish Oil Ec 1,000 Mg]) 1 each PO DAILY [facility] Last Admin: 03/07/20 12:34 Dose: Not Given Documented by: No Warfarin Today () 0 each PO ONETIME ONE Stop: 03/07/20 14:01 Last Admin: 03/07/20 13:55 Dose: Not Given Documented by: - Exam General: Alert, Oriented HEENT: Pupils Equal, Pupils Reactive, Mucous Membr. Moist/[place] Neck: Supple Lungs: Clear to Auscultation, Normal Respiratory Effort Cardiovascular: Regular Rate, Regular Rhythm GI/Abdominal Exam: Normal Bowel Sounds, Soft, No Distention, Other (Ileal conduit bag with clear urine. ) Sepsis Event Note - Evaluation Sepsis Screening Result: No Definite Risk - Focused Exam Vital Signs: Vital Signs Temp Pulse Resp BP Pulse Ox 03/08/20 06:54 99.8 F 72 18 137/71 95 03/08/20 05:47 99.2 F 74 18 140/68 - Problem List & Annotations (1) LONNY (acute kidney injury) SNOMED Code(s): 64686114, 67335316 Code(s): N17.9 - ACUTE KIDNEY FAILURE, UNSPECIFIED Status: Acute Current Visit: Yes (2) Severe sepsis with acute organ dysfunction SNOMED Code(s): 46109446 Code(s): A41.9 - SEPSIS, UNSPECIFIED ORGANISM; R65.20 - SEVERE SEPSIS WITHOUT SEPTIC SHOCK Status: Acute Current Visit: Yes (3) Fever of unknown origin SNOMED Code(s): 0159629 Code(s): R50.9 - FEVER, UNSPECIFIED Status: Acute Current Visit: No (4) Hx of bladder cancer SNOMED Code(s): 776433099, 763937277 Code(s): Z85.51 - PERSONAL HISTORY OF MALIGNANT NEOPLASM OF BLADDER Status: Acute Current Visit: No (5) Renal transplant recipient SNOMED Code(s): 481549368, 625661987 Code(s): Z94.0 - KIDNEY TRANSPLANT STATUS Status: Acute Current Visit: No (6) Sepsis SNOMED Code(s): 62539327 Code(s): A41.9 - SEPSIS, UNSPECIFIED ORGANISM Status: Acute Current Visit: No Qualifiers: Sepsis type: sepsis due to unspecified organism Sepsis acute organ dy sfunction status: unspecified Qualified Code(s): A41.9 - Sepsis, unspecified organism (7) Supratherapeutic INR SNOMED Code(s): 291301471 Code(s): R79.1 - ABNORMAL COAGULATION PROFILE Status: Acute Current Visit: No (8) Diarrhea SNOMED Code(s): 57254855 Code(s): R19.7 - DIARRHEA, UNSPECIFIED Status: Acute Current Visit: Yes - Problem List Review Problem List Initiated/Reviewed/Updated: Yes - My Orders Last 24 Hours: My Active Orders 03/07/20 14:10 Up ad Candie [RC] ASDIRECTED 03/07/20 21:00 Aspirin [Halfprin] 81 mg PO DAILY@2100 03/08/20 11:07 Isolation [COMM] Stat 03/08/20 11:27 CLOSTRIDIUM DIFFICILE TOX RFLX [MREF] Routine 03/08/20 12:00 Piperacillin/Tazobactam [Zosyn] 3.375 gm Sodium Chloride 0.9% [Normal Saline] 100 ml IV Q6HR 03/08/20 14:00 Warfarin [Coumadin] 1 mg PO ONETIME ONE 03/08/20 17:00 levoFLOXacin [Levaquin] 500 mg PO Q48H 03/08/20 21:00 atorvaSTATin [Lipitor] 10 mg PO DAILY@2100 03/09/20 10:04 INR,PT,PROTHROMBIN TIME [COAG] DAILY 03/10/20 10:04 INR,PT,PROTHROMBIN TIME [COAG] DAILY 03/11/20 10:04 INR,PT,PROTHROMBIN TIME [COAG] DAILY 03/12/20 10:04 INR,PT,PROTHROMBIN TIME [COAG] DAILY 03/13/20 10:04 INR,PT,PROTHROMBIN TIME [COAG] DAILY - Plan Plan:: #Severe sepsis with acute organ dysfunction: Patient with tachypnea and fever with temperature of 100.4 in the ED. With associated acute kidney injury. ED provider discussed with patient's primary care provider who recommended starting patient on antibiotics and IV fluids -Continue Levaquin and Zosyn -Follow-up on cultures #Diarrhea: -Rule out C diff. -If negative, will start loperamide. #History of DVT #Supratherapeutic INR: Resolved. 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 -Patient is on only Prograf for immunosuppression -Not on CellCept or prednisone -Patient's primary care provider our office hospitalization -Continue to monitor renal function -Avoid nephrotoxins -#LONNY on CKD stage III: Cr improved to 1.7, which is his baseline. -Patient's creatinine on presentation was 2.26. -Seems to be higher than patient's baseline of 1.7 -Continue to monitor renal function -Avoid nephrotoxins -Continue IV fluids DVT prophylaxis: On warfarin, pharmacy to dose GI prophylaxis: General diet I called Dr. Paulson's office but call went to voice mail. Expecting call back. CODE STATUS: Full code per patient and family preference.
[2020-03-08] MEDS ORDERED: Levofloxacin 500 MG Tab PO SCH (17:00)
[2020-03-08] MEDS: Aspirin 81 MG Tab.EC PO SCH (20:55)
[2020-03-08] MEDS: atorvaSTATin 10 MG Tab PO SCH (20:56)
[2020-03-08] MEDS: amLODIPine 5 MG Tab PO SCH (20:56)
[2020-03-08] MEDS: LORazepam 0.5 MG Tab PO SCH (20:56)
[2020-03-08] MEDS: Melatonin 3 MG Tab PO SCH (20:56)
[2020-03-09] MEDS: Piperacillin/Tazobactam 3.375 GM in Sodium Chloride 0.9% 100 ML IV SCH (05:47)
[2020-03-09] MEDS: Omeprazole 20 MG Cap.CR PO SCH (05:48)
[2020-03-09 06:57] LABS: ANION GAP 13.2 mEq/L (7-13)
[2020-03-09] MEDS: TACROLIMUS 1 MG PO SCH ×2 (10:53→20:27)
[2020-03-09] MEDS: Multivitamins,Therapeutic Tab PO SCH (10:54)
[2020-03-09] MEDS: Vancomycin 125 MG Cap PO SCH ×4 (10:55→20:31)
--- NOTE | 2020-03-09 11:48 | PCM.PN ---
- General Info Date of Service: 03/09/20 Admission Dx/Problem (Free Text): Admission Diagnosis/Problem Admission Diagnosis/Problem Fever Subjective Update: Had a temp of 100.7 this morning. Continues to have diarrhea. C diff positive. No n/v/c, or hematuria. No chest pain or shortness of breath, no recurrence of hemoptysis. - Patient Data Vitals - Most Recent: Last Vital Signs Temp 99.2 F 03/09/20 01:00 Pulse 74 03/09/20 01:00 Resp 18 03/09/20 01:00 BP 139/70 03/09/20 01:00 Pulse Ox 95 03/09/20 01:00 Weight - Most Recent: 170 lb I&O - Last 24 Hours: Intake & Output 03/08/20 03/09/20 03/09/20 22:59 06:59 14:59 Intake Total 1210 388 Output Total 700 1500 Balance 510 -1112 Lab Results Last 24 Hours: Laboratory Results - last 24 hr 03/09/20 03/09/20 03/09/20 Range/Units 06:08 06:08 06:08 WBC 10.5 H (5.0-10.0) 10^3/uL RBC 3.90 L (4.6-6.2) 10^6/uL Hgb 10.8 L (14.0-18.0) g/dL Hct 32.7 L (40.0-54.0) % MCV 83.8 (80-100) fL MCH 27.7 (27.0-34.0) pg MCHC 33.0 (33.0-35.0) g/dL Plt Count 446 (150-450) 10^3/uL PT 19.8 H (9.0-12.0) SEC INR 2.1 H (0.9-1.2) Sodium 142 (136-145) mmol/L Potassium 4.2 (3.5-5.1) mmol/L Chloride 106 (98-107) mmol/L Carbon Dioxide 27 (21-32) mmol/L Anion Gap 13.2 H (7-13) mEq/L BUN 19 H (7-18) mg/dL Creatinine 1.55 H (0.70-1.30) mg/dL Est Cr Clr Drug Dosing 36.13 mL/min Estimated GFR (MDRD) 43 Glucose 84 (74-99) mg/dL Calcium 8.6 (8.5-10.1) mg/dL Phosphorus 3.5 (2.6-4.7) mg/dL Magnesium 1.5 L (1.8-2.4) mg/dL [place] Results Last 24 Hours: Microbiology 03/08/20 11:27 Clostridioides difficile (PCR) - Final Stool / Feces Clostridioides difficile Toxin Assay - Final 03/06/20 15:42 Aerobic Blood Culture - Preliminary Blood - Venous - Lab Draw NO GROWTH AFTER 2 DAYS Anaerobic Blood Culture - Final 03/06/20 15:37 Aerobic Blood Culture - Preliminary Blood - Venous NO GROWTH AFTER 2 DAYS Anaerobic Blood Culture - Preliminary NO GROWTH AFTER 2 DAYS Med Orders - Current: Current Medications Acetaminophen (Tylenol) 650 mg PO Q4H PRN PRN Reason: Pain (Mild 1-3)/fever Last Admin: 03/08/20 00:38 Dose: 650 mg Documented by: Amlodipine Besylate (Norvasc) 7.5 mg PO BEDTIME [facility] Last Admin: 03/08/20 20:56 Dose: 7.5 mg Documented by: Aspirin (Halfprin) 81 mg PO DAILY@2100 [facility] Last Admin: 03/08/20 20:55 Dose: 81 mg Documented by: Atorvastatin Calcium (Lipitor) 10 mg PO DAILY@2100 [facility] Last Admin: 03/08/20 20:56 Dose: 10 mg Documented by: Influenza Virus Vaccine (Pharmacy To Dose - Influenza Vaccine) 1 each IM DAILY [facility] Last Admin: 03/08/20 10:57 Dose: Not Given Documented by: Lorazepam (Ativan) 0.5 mg PO BEDTIME [facility] Last Admin: 03/08/20 20:56 Dose: 0.5 mg Documented by: Melatonin (Melatonin) 3 mg PO BEDTIME [facility] Last Admin: 03/08/20 20:56 Dose: 3 mg Documented by: Multivitamins (Thera) 1 each PO DAILY [facility] Last Admin: 03/09/20 10:54 Dose: 1 each Documented by: Tacrolimus 1 Mg Pt (Own Med) 0 mg PO BID [facility] Last Admin: 03/09/20 10:53 Dose: 2 mg Documented by: Omeprazole (Omeprazole) 20 mg PO ACBREAKFAST [facility] Last Admin: 03/09/20 05:48 Dose: 20 mg Documented by: Ondansetron HCl (Zofran Odt) 4 mg PO Q6H PRN PRN Reason: nausea, able to take PO Ondansetron HCl (Zofran) 4 mg IVPUSH Q6H PRN PRN Reason: Nausea/Vomiting Senna/Docusate Sodium (Senna Plus) 1 tab PO BEDTIME PRN PRN Reason: Constipation Last Admin: 03/06/20 21:40 Dose: 1 tab Documented by: Sodium Chloride (Saline Flush) 10 ml FLUSH ASDIRECTED PRN PRN Reason: Keep Vein Open Last Admin: 03/06/20 16:46 Dose: 10 ml Documented by: Vancomycin HCl (Vancocin 125 Mg Capsule) 125 mg PO QID [facility] Last Admin: 03/09/20 10:55 Dose: 125 mg Documented by: Warfarin Sodium (Pharmacy To Dose - Warfarin) 1 dose .XX ASDIRECTED [facility] Warfarin Sodium (Coumadin) 2.5 mg PO ONETIME ONE Stop: 03/09/20 14:01 Discontinued Medications Aspirin (Halfprin) 81 mg PO DAILY [facility] Last Admin: 03/07/20 09:00 Dose: Not Given Documented by: Atorvastatin Calcium (Lipitor) 10 mg PO DAILY [facility] Last Admin: 03/07/20 08:58 Dose: 10 mg Documented by: Levofloxacin/Dextrose 500 mg/ (Premix) 100 mls @ 100 mls/hr IV ONETIME ONE Stop: 03/06/20 17:32 Last Admin: 03/06/20 16:45 Dose: 100 mls/hr Documented by: Piperacillin Sod/Tazobactam (Sod 3.375 gm/ Sodium Chloride) 100 mls @ 200 mls/hr IV ONETIME ONE Stop: 03/06/20 18:02 Last Admin: 03/06/20 18:47 Dose: 200 mls/hr Documented by: Sodium Chloride (Normal Saline) 1,000 mls @ 150 mls/hr IV ASDIRECTED [facility] Last Admin: 03/06/20 18:47 Dose: 150 mls/hr Documented by: Lactated Ringer's (Ringers, Lactated) 1,000 mls @ 125 mls/hr IV ASDIRECTED [facility] Last Admin: 03/08/20 09:11 Dose: 125 mls/hr Documented by: Piperacillin Sod/Tazobactam (Sod 3.375 gm/ Sodium Chloride) 100 mls @ 200 mls/hr IV Q6H [facility] Last Admin: 03/08/20 02:35 Dose: 200 mls/hr Documented by: Piperacillin Sod/Tazobactam (Sod 3.375 gm/ Sodium Chloride) 100 mls @ 200 mls/hr IV Q6HR [facility] Last Admin: 03/09/20 05:47 Dose: 200 mls/hr Documented by: Levofloxacin (Levaquin) 500 mg PO Q48H [facility] Last Admin: 03/08/20 18:00 Dose: 500 mg Documented by: Non-Formulary Medication (Ciclopirox [Penlac 8% Nail Lacquer]) 1 applic TOP ASDIRECTED PRN PRN Reason: Other Non-Formulary Medication ([place]-3/Dha/Epa/Fish Oil [[place]-3 Fish Oil Ec 1,000 Mg]) 1 each PO DAILY [facility] Last Admin: 03/07/20 12:34 Dose: Not Given Documented by: No Warfarin Today () 0 each PO ONETIME ONE Stop: 03/07/20 14:01 Last Admin: 03/07/20 13:55 Dose: Not Given Documented by: Warfarin Sodium (Coumadin) 1 mg PO ONETIME ONE Stop: 03/08/20 14:01 Last Admin: 03/08/20 15:09 Dose: 1 mg Documented by: - Exam General: Alert, Oriented, Cooperative, No Acute Distress HEENT: Pupils Equal, Pupils Reactive, Mucous Membr. Moist/[place] Neck: Supple Lungs: Clear to Auscultation, Normal Respiratory Effort Cardiovascular: Regular Rate, Regular Rhythm GI/Abdominal Exam: Normal Bowel Sounds, Soft, Non-Tender, No Distention, Other (Ileal conduit bag with clear urine) Extremities: Normal Inspection, Non-Tender, No Pedal Edema Skin: Warm, Dry, Intact Neurological: No New Focal Deficit Psy/Mental Status: Alert, Normal Affect, Normal Mood Sepsis Event Note - Evaluation Sepsis Screening Result: No Definite Risk - Focused Exam Vital Signs: Vital Signs Temp Pulse Resp BP Pulse Ox 03/09/20 01:00 99.2 F 74 18 139/70 95 - Problem List & Annotations (1) LONNY (acute kidney injury) SNOMED Code(s): 32958712, 72512209 Code(s): N17.9 - ACUTE KIDNEY FAILURE, UNSPECIFIED Status: Acute Current Visit: Yes (2) Severe sepsis with acute organ dysfunction SNOMED Code(s): 48764069 Code(s): A41.9 - SEPSIS, UNSPECIFIED ORGANISM; R65.20 - SEVERE SEPSIS WITHOUT SEPTIC SHOCK Status: Acute Current Visit: Yes (3) Fever of unknown origin SNOMED Code(s): 5997345 Code(s): R50.9 - FEVER, UNSPECIFIED Status: Acute Current Visit: No (4) Hx of bladder cancer SNOMED Code(s): 265060739, 570229562 Code(s): Z85.51 - PERSONAL HISTORY OF MALIGNANT NEOPLASM OF BLADDER Status: Acute Current Visit: No (5) Renal transplant recipient SNOMED Code(s): 989482482, 281585612 Code(s): Z94.0 - KIDNEY TRANSPLANT STATUS Status: Acute Current Visit: No (6) Sepsis SNOMED Code(s): 29846201 Code(s): A41.9 - SEPSIS, UNSPECIFIED ORGANISM Status: Acute Current Visit: No Qualifiers: Sepsis type: sepsis due to unspecified organism Sepsis acute organ dysfunction status: unspecified Qualified Code(s): A41.9 - Sepsis, unspecified organism (7) Supratherapeutic INR SNOMED Code(s): 894822371 Code(s): R79.1 - ABNORMAL COAGULATION PROFILE Status: Acute Current Visit: No (8) Diarrhea SNOMED Code(s): 15927154 Code(s): R19.7 - DIARRHEA, UNSPECIFIED Status: Acute Current Visit: Yes (9) C. difficile diarrhea SNOMED Code(s): 3912337349731 Code(s): A04.72 - ENTEROCOLITIS D/T CLOSTRIDIUM DIFFICILE, NOT SPCF RECUR Status: Acute Current Visit: Yes - Problem List Review Problem List Initiated/Reviewed/Updated: Yes - My Orders Last 24 Hours: My Active Orders 03/08/20 11:07 Isolation [COMM] Stat 03/08/20 16:25 Convert IV to Saline Lock [OM.PC] Routine 03/08/20 21:00 atorvaSTATin [Lipitor] 10 mg PO DAILY@2100 03/09/20 09:00 Vancomycin [Vancocin 125 MG Capsule] 125 mg PO QID 03/09/20 14:00 Warfarin [Coumadin] 2.5 mg PO ONETIME ONE 03/10/20 06:00 INR,PT,PROTHROMBIN TIME [COAG] DAILY 03/11/20 06:00 INR,PT,PROTHROMBIN TIME [COAG] DAILY 03/12/20 06:00 INR,PT,PROTHROMBIN TIME [COAG] DAILY 03/13/20 06:00 INR,PT,PROTHROMBIN TIME [COAG] DAILY 03/14/20 06:00 INR,PT,PROTHROMBIN TIME [COAG] DAILY 03/15/20 06:00 INR,PT,PROTHROMBIN TIME [COAG] DAILY 03/16/20 06:00 INR,PT,PROTHROMBIN TIME [COAG] DAILY - Plan Plan:: #C diff. Diarrhea: #Severe sepsis with acute organ dysfunction: Patient with tachypnea and fever with temperature of 100.4 in the ED. With associated acute kidney injury. ED provider discussed with patient's primary care provider who recommended starting patient on antibiotics and IV fluids. WBC count improved. -Discontinue Levaquin and Zosyn -Follow-up on cultures -Start oral vancomycin - Monitor CBC and renal function #History of DVT #Supratherapeutic INR: Resolved. 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 -Patient is on only Prograf for immunosuppression -Not on CellCept or prednisone -Patient's primary care provider our office hospitalization -Continue to monitor renal function -Avoid nephrotoxins -#LONNY on CKD stage III: Cr improved to 1.55, which is his baseline. -Patient's creatinine on presentation was 2.26. -Seems to be higher than patient's baseline of 1.7 -Continue to monitor renal function -Avoid nephrotoxins -Continue IV fluids DVT prophylaxis: On warfarin, pharmacy to dose GI prophylaxis: General diet Discussed with patient's leather drier Dr. Paulson CODE STATUS: Full code per patient and family preference.
[2020-03-09] MEDS ORDERED: Warfarin 2.5 MG Tab PO ONE (14:00)
[2020-03-09] MEDS: Aspirin 81 MG Tab.EC PO SCH (20:22)
[2020-03-09] MEDS: atorvaSTATin 10 MG Tab PO SCH (20:22)
[2020-03-09] MEDS: LORazepam 0.5 MG Tab PO SCH (20:22)
[2020-03-09] MEDS: Melatonin 3 MG Tab PO SCH (20:23)
[2020-03-09] MEDS: amLODIPine 5 MG Tab PO SCH (20:26)
[2020-03-10] MEDS: Omeprazole 20 MG Cap.CR PO SCH (05:36)
[2020-03-10 06:49] LABS: ANION GAP 12.5 mEq/L (7-13)
[2020-03-10] MEDS: TACROLIMUS 1 MG PO SCH (09:48)
[2020-03-10] MEDS: Vancomycin 125 MG Cap PO SCH ×2 (09:49→13:00)
[2020-03-10] MEDS: Multivitamins,Therapeutic Tab PO SCH (09:49)
--- NOTE | 2020-03-10 10:33 | PCM.DCSUM1 ---
Discharge Summary - Hospital Course Free Text/Narrative:: Mr. 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 Patient's temperature on presentation was 100.4 with associated kidney injury. He was also tachypneic. His lab systems analyst Dr. Paulson was consulted by the ED who recommended starting patient on Levaquin and Zosyn. Patient reported diarrhea for the morning. He was tested for C. difficile and came back positive. Levaquin and Zosyn were discontinued. He was started on oral vancomycin. On presentation, patient's creatinine was 2.26. Creatinine improved to 1.47 with IV fluids. His INR on presentation was 4.9. Pharmacy manages warfarin. INR came down to 1.6. He is being discharged home to continue oral vancomycin and to follow-up with his PCP and lab systems analyst. He is to continue his home dose of warfarin. He has outpatient labs ordered to be obtained prior to PCP appointment. HPI Initial Comments: Mr. 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 Patient states that he has had chills for about a week. Patient reports that he coughed up blood in the morning and decided to come to the ED. States that he received renal transplant in 2012. Developed bladder cancer and underwent cystectomy and prostatectomy with ileal conduit last year. Reports that he has chronic cough at baseline the sputum has always been clear. Has dyspnea on exertion at baseline and this is unchanged. He denies any nausea, vomiting, diarrhea, constipation, melena, hematochezia, vision changes, hematuria, chest pain, or any acute symptoms. In the ED, patient was noted to have elevated creatinine. His PCP was called who indicated that he can be admitted here and started on antibiotics and IV fluids. Diagnosis: Stroke: No - Discharge Data Discharge Date: 03/10/20 Discharge Disposition: Home, Self-Care 01 Condition: Good - Referral to Home Health Primary Care Physician: Sherrell Rock MD - Discharge Diagnosis/Problem(s) (1) LONNY (acute kidney injury) SNOMED Code(s): 34435611, 65014848 ICD Code: N17.9 - ACUTE KIDNEY FAILURE, UNSPECIFIED Status: Acute Current Visit: Yes (2) Severe sepsis with acute organ dysfunction SNOMED Code(s): 92931065 ICD Code: A41.9 - SEPSIS, UNSPECIFIED ORGANISM; R65.20 - SEVERE SEPSIS WITHOUT SEPTIC SHOCK Status: Acute Current Visit: Yes (3) Fever of unknown origin SNOMED Code(s): 4758957 ICD Code: R50.9 - FEVER, UNSPECIFIED Status: Acute Current Visit: No (4) Hx of bladder cancer SNOMED Code(s): 761469561, 461843663 ICD Code: Z85.51 - PERSONAL HISTORY OF MALIGNANT NEOPLASM OF BLADDER Status: Acute Current Visit: No (5) Renal transplant recipient SNOMED Code(s): 111615555, 413016084 ICD Code: Z94.0 - KIDNEY TRANSPLANT STATUS Status: Acute Current Visit: No (6) Sepsis SNOMED Code(s): 87228203 ICD Code: A41.9 - SEPSIS, UNSPECIFIED ORGANISM Status: Acute Current Visit: No Qualifiers: Sepsis type: sepsis due to unspecified organism Sepsis acute organ dysfunction status: unspecified Qualified Code(s): A41.9 - Sepsis, unspecified organism (7) Supratherapeutic INR SNOMED Code(s): 033824772 ICD Code: R79.1 - ABNORMAL COAGULATION PROFILE Status: Acute Current Visit: No (8) Diarrhea SNOMED Code(s): 96851814 ICD Code: R19.7 - DIARRHEA, UNSPECIFIED Status: Acute Current Visit: Yes (9) C. difficile diarrhea SNOMED Code(s): 2406645580787 ICD Code: A04.72 - ENTEROCOLITIS D/T CLOSTRIDIUM DIFFICILE, NOT SPCF RECUR Status: Acute Current Visit: Yes - Discharge Plan *PRESCRIPTION DRUG MONITORING PROGRAM REVIEWED*: Not Applicable *COPY OF PRESCRIPTION DRUG MONITORING REPORT IN PATIENT DAYNE: Not Applicable Home Medications: Home Meds Ciclopirox [Penlac 8% Nail Lacquer] 1 applic TOP ASDIRECTED PRN 09/22/13 [History] Multivitamin with Minerals [Multiple Vitamin] 1 tab PO DAILY 09/22/13 [History] Warfarin Sodium 2.5 mg PO .4XWEEK 09/22/13 [History] Warfarin Sodium 5 mg PO .3XWEEK 09/22/13 [History] amLODIPine [Norvasc] 7.5 mg PO BEDTIME 09/22/13 [History] Aspirin [Adult Low Dose Aspirin EC] 81 mg PO DAILY 04/20/18 [History] LORazepam 0.5 mg PO BEDTIME 04/20/18 [History] Melatonin 3 mg PO BEDTIME 04/20/18 [History] [place]-3/DHA/Epa/Fish Oil [[place]-3 Fish Oil EC 1,000 mg] 1 each PO DAILY 04/20/18 [History] Omeprazole 20 mg PO DAILY 04/20/18 [History] atorvaSTATin [Lipitor] 10 mg pe PO DAILY 04/20/18 [History] Tacrolimus 2 mg PO BID 03/06/20 [History] Vancomycin [Vancocin 125 MG Capsule] 125 mg PO QID cap 03/10/20 [Rx] Referrals: Alycia Rock MD [Primary Care Provider] - - Discharge Summary/Plan Comment DC Time >30 min.: Yes Discharge Summary/Plan Comment: PCP to follow up in Basic metabolic panel and CBC. - General Info Date of Service: 03/10/20 Admission Dx/Problem (Free Text: Admission Diagnosis/Problem Admission Diagnosis/Problem Fever Subjective Update: No acute events overnight. Afebrile. States he has had only one bowel movement today, which was still watery. Had 6 bowel movements yesterday. No n/v/c, or hematuria. No chest pain or shortness of breath, no recurrence of hemoptysis. - Patient Data Vitals - Most Recent: Last Vital Signs Temp 98.6 F 03/10/20 08:11 Pulse 80 03/10/20 08:11 Resp 18 03/10/20 08:11 BP 164/83 H 03/10/20 08:11 Pulse Ox 95 03/10/20 08:11 Weight - Most Recent: 170 lb I&O - Last 24 hours: Intake & Output 03/09/20 03/10/20 03/10/20 22:59 06:59 14:59 Intake Total 120 Output Total 2350 1600 Balance -2229 -1600 Lab Results - Last 24 hrs: Laboratory Results - last 24 hr 03/10/20 03/10/20 03/10/20 Range/Units 06:19 06:19 06:19 WBC 8.6 (5.0-10.0) 10^3/uL RBC 4.07 L (4.6-6.2) 10^6/uL Hgb 11.3 L (14.0-18.0) g/dL Hct 34.4 L (40.0-54.0) % MCV 84.5 (80-100) fL MCH 27.8 (27.0-34.0) pg MCHC 32.8 L (33.0-35.0) g/dL Plt Count 444 (150-450) 10^3/uL PT 14.8 H (9.0-12.0) SEC INR 1.6 H (0.9-1.2) Sodium 141 (136-145) mmol/L Potassium 4.5 (3.5-5.1) mmol/L Chloride 106 (98-107) mmol/L Carbon Dioxide 27 (21-32) mmol/L Anion Gap 12.5 (7-13) mEq/L BUN 18 (7-18) mg/dL Creatinine 1.47 H (0.70-1.30) mg/dL Est Cr Clr Drug Dosing 38.10 mL/min Estimated GFR (MDRD) 46 Glucose 87 (74-99) mg/dL Calcium 9.0 (8.5-10.1) mg/dL Magnesium 1.7 L (1.8-2.4) mg/dL JACOB Results - Last 24 hrs: Microbiology 03/06/20 15:42 Aerobic Blood Culture - Preliminary Blood - Venous - Lab Draw NO GROWTH AFTER 3 DAYS Anaerobic Blood Culture - Final 03/06/20 15:37 Aerobic Blood Culture - Preliminary Blood - Venous NO GROWTH AFTER 3 DAYS Anaerobic Blood Culture - Preliminary NO GROWTH AFTER 3 DAYS 03/08/20 11:27 Clostridioides difficile (PCR) - Final Stool / Feces Clostridioides difficile Toxin Assay - Final Med Orders - Current: Current Medications Acetaminophen (Tylenol) 650 mg PO Q4H PRN PRN Reason: Pain (Mild 1-3)/fever Last Admin: 03/08/20 00:38 Dose: 650 mg Documented by: Amlodipine Besylate (Norvasc) 7.5 mg PO BEDTIME [facility] Last Admin: 03/09/20 20:26 Dose: 7.5 mg Documented by: Aspirin (Halfprin) 81 mg PO DAILY@2100 [facility] Last Admin: 03/09/20 20:22 Dose: 81 mg Documented by: Atorvastatin Calcium (Lipitor) 10 mg PO DAILY@2100 [facility] Last Admin: 03/09/20 20:22 Dose: 10 mg Documented by: Influenza Virus Vaccine (Pharmacy To Dose - Influenza Vaccine) 1 each IM DAILY [facility] Last Admin: 03/09/20 16:06 Dose: Not Given Documented by: Lorazepam (Ativan) 0.5 mg PO BEDTIME [facility] Last Admin: 03/09/20 20:22 Dose: 0.5 mg Documented by: Melatonin (Melatonin) 3 mg PO BEDTIME [facility] Last Admin: 03/09/20 20:23 Dose: 3 mg Documented by: Multivitamins (Thera) 1 each PO DAILY [facility] Last Admin: 03/10/20 09:49 Dose: 1 each Documented by: Tacrolimus 1 Mg Pt (Own Med) 0 mg PO BID [facility] Last Admin: 03/10/20 09:48 Dose: 2 mg Documented by: Omeprazole (Omeprazole) 20 mg PO ACBREAKFAST [facility] Last Admin: 03/10/20 05:36 Dose: 20 mg Documented by: Ondansetron HCl (Zofran Odt) 4 mg PO Q6H PRN PRN Reason: nausea, able to take PO Ondansetron HCl (Zofran) 4 mg IVPUSH Q6H PRN PRN Reason: Nausea/Vomiting Senna/Docusate Sodium (Senna Plus) 1 tab PO BEDTIME PRN PRN Reason: Constipation Last Admin: 03/06/20 21:40 Dose: 1 tab Documented by: Sodium Chloride (Saline Flush) 10 ml FLUSH ASDIRECTED PRN PRN Reason: Keep Vein Open Last Admin: 03/06/20 16:46 Dose: 10 ml Documented by: Vancomycin HCl (Vancocin 125 Mg Capsule) 125 mg PO QID [facility] Last Admin: 03/10/20 09:49 Dose: 125 mg Documented by: Warfarin Sodium (Pharmacy To Dose - Warfarin) 1 dose .XX ASDIRECTED [facility] Warfarin Sodium (Coumadin) 5 mg PO ONETIME ONE Stop: 03/10/20 14:01 Discontinued Medications Aspirin (Halfprin) 81 mg PO DAILY [facility] Last Admin: 03/07/20 09:00 Dose: Not Given Documented by: Atorvastatin Calcium (Lipitor) 10 mg PO DAILY [facility] Last Admin: 03/07/20 08:58 Dose: 10 mg Documented by: Levofloxacin/Dextrose 500 mg/ (Premix) 100 mls @ 100 mls/hr IV ONETIME ONE Stop: 03/06/20 17:32 Last Admin: 03/06/20 16:45 Dose: 100 mls/hr Documented by: Piperacillin Sod/Tazobactam (Sod 3.375 gm/ Sodium Chloride) 100 mls @ 200 mls/ hr IV ONETIME ONE Stop: 03/06/20 18:02 Last Admin: 03/06/20 18:47 Dose: 200 mls/hr Documented by: Sodium Chloride (Normal Saline) 1,000 mls @ 150 mls/hr IV ASDIRECTED [facility] Last Admin: 03/06/20 18:47 Dose: 150 mls/hr Documented by: Lactated Ringer's (Ringers, Lactated) 1,000 mls @ 125 mls/hr IV ASDIRECTED [facility] Last Admin: 03/08/20 09:11 Dose: 125 mls/hr Documented by: Piperacillin Sod/Tazobactam (Sod 3.375 gm/ Sodium Chloride) 100 mls @ 200 mls/hr IV Q6H [facility] Last Admin: 03/08/20 02:35 Dose: 200 mls/hr Documented by: Piperacillin Sod/Tazobactam (Sod 3.375 gm/ Sodium Chloride) 100 mls @ 200 mls/hr IV Q6HR [facility] Last Admin: 03/09/20 05:47 Dose: 200 mls/hr Documented by: Levofloxacin (Levaquin) 500 mg PO Q48H [facility] Last Admin: 03/08/20 18:00 Dose: 500 mg Documented by: Non-Formulary Medication (Ciclopirox [Penlac 8% Nail Lacquer]) 1 applic TOP ASDIRECTED PRN PRN Reason: Other Non-Formulary Medication ([place]-3/Dha/Epa/Fish Oil [[place]-3 Fish Oil Ec 1,000 Mg]) 1 each PO DAILY [facility] Last Admin: 03/07/20 12:34 Dose: Not Given Documented by: No Warfarin Today () 0 each PO ONETIME ONE Stop: 03/07/20 14:01 Last Admin: 03/07/20 13:55 Dose: Not Given Documented by: Warfarin Sodium (Coumadin) 1 mg PO ONETIME ONE Stop: 03/08/20 14:01 Last Admin: 03/08/20 15:09 Dose: 1 mg Documented by: Warfarin Sodium (Coumadin) 2.5 mg PO ONETIME ONE Stop: 03/09/20 14:01 Last Admin: 03/09/20 15:36 Dose: 2.5 mg Documented by: - Exam General: Reports: Alert, Oriented, Cooperative, No Acute Distress HEENT: Reports: Pupils Equal, Pupils Reactive, Mucous Membr. Moist/[place] Neck: Reports: Supple Lungs: Reports: Clear to Auscultation, Normal Respiratory Effort Cardiovascular: Reports: Regular Rate, Regular Rhythm, No Murmurs GI/Abdominal Exam: Normal Bowel Sounds, Soft, Non-Tender, Other (ileal conduit bag with clear urine. ) Skin: Reports: Warm, Dry, Intact Psy/Mental Status: Reports: Alert, Normal Affect, Normal Mood *Q Meaningful Use (DIS) - VTE *Q VTE Anticoagulation Contraindications: Med/TX Not Indicated/Need
[2020-03-10] MEDS ORDERED: Warfarin 5 MG Tab PO ONE (14:00)
== END 2020-03-10 13:30 | disposition home or self-care (01) | DRG 872 ==
LOC: DL.ED 14:38 → UNDOADMOB 18:00 → DL.MS 18:00 → OBSVTOIN 18:01 → DL.MS 18:01 → DL.ED 18:04 → DL.MS 18:07 → UNDOADMOB 18:07 → INTOOBSV 03-07 08:51 → OBSVTOIN 03-07 08:51 → UNDODISIN 03-10 13:30
PROVIDERS: ADMIT Student in an Organized Health Care Education/Training Program; ATTEND Internal Medicine
DX: A41.9 Sepsis, unspecified organism (principal); N17.9 Acute kidney failure, unspecified; Z94.0 Kidney transplant status; A04.72 Enterocolitis due to Clostridium difficile, not specified as recurrent; I10 Essential (primary) hypertension; K57.90 Diverticulosis of intestine, part unspecified, without perforation or abscess without bleeding; I12.0 Hypertensive chronic kidney disease with stage 5 chronic kidney disease or end stage renal disease; N18.6 End stage renal disease; Z99.2 Dependence on renal dialysis; R65.20 Severe sepsis without septic shock; R79.1 Abnormal coagulation profile; R19.7 Diarrhea, unspecified; Z93.6 Other artificial openings of urinary tract status; Z20.828 Contact with and (suspected) exposure to other viral communicable diseases; D63.1 Anemia in chronic kidney disease; E78.00 Pure hypercholesterolemia, unspecified; N18.30 Chronic kidney disease, stage 3 unspecified; I12.9 Hypertensive chronic kidney disease with stage 1 through stage 4 chronic kidney disease, or unspecified chronic kidney disease; F50.9 Eating disorder, unspecified; H54.7 Unspecified visual loss; F41.9 Anxiety disorder, unspecified; Z85.51 Personal history of malignant neoplasm of bladder; Z79.01 Long term (current) use of anticoagulants; Z79.82 Long term (current) use of aspirin; Z79.899 Other long term (current) drug therapy; Z88.8 Allergy status to other drugs, medicaments and biological substances; Z87.891 Personal history of nicotine dependence; Z86.718 Personal history of other venous thrombosis and embolism; Z98.42 Cataract extraction status, left eye; Z98.41 Cataract extraction status, right eye; Z79.84 Long term (current) use of oral hypoglycemic drugs
CPT/HCPCS: 36415; 71250; 80053; 81001; 82728; 83605; 83615; 83735; 83880; 84100; 85025; 85610; 85730; 86140; 87040 ×2; 96365; 99284; 99285; J1956; U0002; 80048; 85027; 87493; 96367; 99222; 99232; 99239; A9270-GY; G0378; J2543; J7030; J7050; J7120

== ENCOUNTER 2020-05-19 09:16 | Emergency (ER) | payer MEDICARE, OTHER ==
--- NOTE | 2020-05-19 09:39 | EDM.PDOC ---
ED HPI GENERAL MEDICAL PROBLEM - General Stated Complaint: UNKNOWN Time Seen by Provider: 05/19/20 09:28 Source of Information: Reports: EMS History Limitations: Reports: Altered Mental Status - History of Present Illness INITIAL COMMENTS - FREE TEXT/NARRATIVE: This 79 yo male patient was brought to the ED by [facility] due to left sided weakness and altered mentation. The patient's family reports the patient was last seen normal at about midnight. EMS reports the patient's blood sugar was 154, oxygen sat was 86% on room air which increased to 100% on a non-rebreather. Upon arrival in the ED, the patient was leaning to his left, not responding to questions. The patient has a sling on his left arm from a recent left shoulder surgery. Onset: Unknown/Unsure Duration: Constant Location: Reports: Generalized Quality: Reports: Other Severity: Moderate Improves with: Reports: None Worsens with: Reports: None Context: Reports: Other - Related Data Allergies Allergy/AdvReac Type Severity Reaction Status Date / Time NSAIDS (Non-Steroidal AdvReac Mild Abdominal Verified 05/19/20 09:46 Anti-Inflamma Pain Home Meds: Home Meds Ciclopirox [Penlac 8% Nail Lacquer] 1 applic TOP ASDIRECTED PRN 09/22/13 [History] Multivitamin with Minerals [Multiple Vitamin] 1 tab PO DAILY 09/22/13 [History] Warfarin Sodium 2.5 mg PO .4XWEEK 09/22/13 [History] Warfarin Sodium 5 mg PO .3XWEEK 09/22/13 [History] amLODIPine [Norvasc] 7.5 mg PO BEDTIME 09/22/13 [History] Aspirin [Adult Low Dose Aspirin EC] 81 mg PO DAILY 04/20/18 [History] LORazepam 0.5 mg PO BEDTIME 04/20/18 [History] Melatonin 3 mg PO BEDTIME 04/20/18 [History] [place]-3/DHA/Epa/Fish Oil [[place]-3 Fish Oil EC 1,000 mg] 1 each PO DAILY 04/20/18 [History] Omeprazole 20 mg PO DAILY 04/20/18 [History] atorvaSTATin [Lipitor] 10 mg pe PO DAILY 04/20/18 [History] Tacrolimus 2 mg PO BID 03/06/20 [History] Vancomycin [Vancocin 125 MG Capsule] 125 mg PO QID cap 03/10/20 [Rx] Past Medical History HEENT History: Reports: Impaired Vision Cardiovascular History: Reports: High Cholesterol, Hypertension Respiratory History: Reports: None Gastrointestinal History: Reports: Diverticulosis Genitourinary History: Reports: Dialysis, Peritoneal, Renal Disease, Urostomy, Other (See Below) Other Genitourinary History: Hx of kidney transplant. Hx of renal artery stenosis. End stage renal disease Bladder removal, clipped kidney, stoma for urination, bladder cancer Musculoskeletal History: Reports: None Neurological History: Reports: None Psychiatric History: Reports: Anxiety Hematologic History: Reports: Other (See Below) Other Hematologic History: Hx of Eosinophilia Immunologic History: Reports: None Oncologic (Cancer) History: Reports: Bladder, Other (See Below) Other Oncologic History: skin cancer hx Dermatologic History: Reports: Other (See Below) Other Dermatologic History: Lipoma - Infectious Disease History Infectious Disease History: Reports: Chicken Pox, Measles, Mumps, Rubella - Past Surgical History HEENT Surgical History: Reports: Cataract Surgery Male Surgical History: Reports: Nephrectomy Other Male Surgeries/Procedures: Kidney transplant Social & Family History - Family History Family Medical History: No Pertinent Family History - Caffeine Use Caffeine Use: Reports: Coffee - Living Situation & Occupation Living situation: Reports: , with Spouse Occupation: Retired ED ROS GENERAL - Review of Systems Review Of Systems: Comprehensive ROS is negative, except as noted in HPI. ED EXAM, NEURO - Physical Exam Exam: See Below Exam Limited By: Altered Mental Status General Appearance: Moderate Distress Eye Exam: Bilateral Eye: EOMI, Normal Inspection, PERRL Ears: Normal External Exam, Normal Canal, Hearing Grossly Normal, Normal TMs Nose: Normal Inspection, Normal Mucosa, No Blood Throat/Mouth: Normal Inspection, Normal Lips, Normal Teeth, Normal Gums, Normal Oropharynx, Normal Voice, No Airway Compromise Head Exam: Atraumatic, Normocephalic Neck: Normal Inspection, Supple, Non-Tender, Full Range of Motion Respiratory/Chest: No Respiratory Distress, Lungs Clear, Normal Breath Sounds, No Accessory Muscle Use, Chest Non-Tender Cardiovascular: Normal Peripheral Pulses, Regular Rate, Rhythm, No Edema, No Gallop, No JVD, No Murmur, No Rub GI/Abdominal: Normal Bowel Sounds, Soft, Non-Tender, Other (colostomy) (Male) Exam: Deferred Rectal (Males) Exam: Deferred Course - Vital Signs Last Recorded V/S: Last Vital Signs Temp 36.1 C 05/19/20 09:30 Pulse 62 05/19/20 09:30 Resp 18 05/19/20 09:30 BP 120/76 05/19/20 09:30 Pulse Ox 100 05/19/20 09:30 - Orders/Labs/Meds Orders: Active Orders 24 hr Category Date Time Status EKG Documentation Completion [RC] STAT Care 05/19/20 09:18 Ordered Glucose [Blood Glucose Check, Bedside] [RC] ONETIME Care 05/19/20 09:20 Ordered ABO/RH TYPE [BBK] Stat Lab 05/19/20 10:03 Ordered ACETAMINOPHEN [CHEM] Stat Lab 05/19/20 09:18 Ordered AMMONIA VENOUS [CHEM] Stat Lab 05/19/20 09:18 Ordered AMYLASE [CHEM] Stat Lab 05/19/20 09:18 Ordered COMPREHENSIVE METABOLIC PN,CMP [CHEM] Stat Lab 05/19/20 09:18 Ordered CORONAVIRUS COVID-19 ANA [MOLEC] Urgent Lab 05/19/20 09:30 Ordered CULTURE BLOOD [BC] Stat Lab 05/19/20 09:18 Ordered CULTURE URINE [RM] Stat Lab 05/19/20 09:30 Received ETHANOL BLOOD MEDICAL [CHEM] Stat Lab 05/19/20 09:18 Ordered FRESH FROZEN PLASMA [BBK] Stat Lab 05/19/20 10:03 Ordered INR,PT,PROTHROMBIN TIME [COAG] Stat Lab 05/19/20 09:48 Ordered LACTIC ACID [CHEM] Stat Lab 05/19/20 09:18 Ordered LIPASE [CHEM] Stat Lab 05/19/20 09:18 Ordered TROPONIN I [CHEM] Stat Lab 05/19/20 09:18 Ordered Phytonadione [AquaMephyton] 10 mg Med 05/19/20 10:03 Ordered Sodium Chloride 0.9% [Normal Saline] 50 ml IV NOW Medication Orders Phytonadione 10 mg/ Sodium (Chloride) 51 mls @ 100 mls/hr IV NOW ONE Stop: 05/19/20 10:33 Labs: Laboratory Tests 05/19/20 05/19/20 05/19/20 Range/Units 09:30 09:30 09:37 WBC (5.0-10.0) 10^3/uL RBC (4.6-6.2) 10^6/uL Hgb (14.0-18.0) g/dL Hct (40.0-54.0) % MCV (80-100) fL MCH (27.0-34.0) pg MCHC (33.0-35.0) g/dL Plt Count (150-450) 10^3/uL Neut % (Auto) (42.2-75.2) % Lymph % (Auto) (20.5-50.1) % [place] % (Auto) (2-8) % Eos % (Auto) (1.0-3.0) % Baso % (Auto) (0.0-1.0) % POC Glucose 150 H (83-110) mg/dl Urine Color Yellow (YELLOW) Urine Appearance Slightly cloudy (CLEAR) Urine pH >= 9.0 (5.0-9.0) Ur Specific [place] 1.015 (1.005-1.030) Urine Protein Negative (NEGATIVE) Urine Glucose (UA) Negative (NEGATIVE) Urine Ketones Negative (NEGATIVE) Urine Occult Blood Trace-intact H (NEGATIVE) Urine Nitrite Positive H (NEGATIVE) Urine Bilirubin Negative (NEGATIVE) Urine Urobilinogen 0.2 (0.2-1.0) mg/dL Ur Leukocyte Esterase Negative (NEGATIVE) Urine RBC Not seen /HPF Urine WBC 0-5 (0-5/HPF) /HPF Ur Epithelial Cells Not seen (NOT SEEN) /HPF Urine Bacteria Moderate H (0-FEW/HPF) /HPF Urine Mucus Not seen (NOT SEEN) /LPF Urine Opiates Screen Negative (NEGATIVE) Ur Oxycodone Screen Negative (NEGATIVE) Urine Methadone Screen Negative (NEGATIVE) Ur Barbiturates Screen Negative (NEGATIVE) U Tricyclic Antidepress Negative (NEGATIVE) Ur Phencyclidine Scrn Negative (NEGATIVE) Ur Amphetamine Screen Negative (NEGATIVE) U Methamphetamines Scrn Negative (NEGATIVE) Urine MDMA Screen Negative (NEGATIVE) U Benzodiazepines Scrn Negative (NEGATIVE) Urine Cocaine Screen Negative (NEGATIVE) U Marijuana (THC) Screen Negative (NEGATIVE) 05/19/20 Range/Units 09:50 WBC 12.5 H (5.0-10.0) 10^3/uL RBC 4.53 L (4.6-6.2) 10^6/uL Hgb 12.3 L (14.0-18.0) g/dL Hct 38.3 L (40.0-54.0) % MCV 84.5 (80-100) fL MCH 27.2 (27.0-34.0) pg MCHC 32.1 L (33.0-35.0) g/dL Plt Count 392 D (150-450) 10^3/uL Neut % (Auto) 77.0 H (42.2-75.2) % Lymph % (Auto) 12.8 L (20.5-50.1) % [place] % (Auto) 7.8 (2-8) % Eos % (Auto) 2.2 (1.0-3.0) % Baso % (Auto) 0.2 (0.0-1.0) % POC Glucose (83-110) mg/dl Urine Color (YELLOW) Urine Appearance (CLEAR) Urine pH (5.0-9.0) Ur Specific [place] (1.005-1.030) Urine Protein (NEGATIVE) Urine Glucose (UA) (NEGATIVE) Urine Ketones (NEGATIVE) Urine Occult Blood (NEGATIVE) Urine Nitrite (NEGATIVE) Urine Bilirubin (NEGATIVE) Urine Urobilinogen (0.2-1.0) mg/dL Ur Leukocyte Esterase (NEGATIVE) Urine RBC /HPF Urine WBC (0-5/HPF) /HPF Ur Epithelial Cells (NOT SEEN) /HPF Urine Bacteria (0-FEW/HPF) /HPF Urine Mucus (NOT SEEN) /LPF Urine Opiates Screen (NEGATIVE) Ur Oxycodone Screen (NEGATIVE) Urine Methadone Screen (NEGATIVE) Ur Barbiturates Screen (NEGATIVE) U Tricyclic Antidepress (NEGATIVE) Ur Phencyclidine Scrn (NEGATIVE) Ur Amphetamine Screen (NEGATIVE) U Methamphetamines Scrn (NEGATIVE) Urine MDMA Screen (NEGATIVE) U Benzodiazepines Scrn (NEGATIVE) Urine Cocaine Screen (NEGATIVE) U Marijuana (THC) Screen (NEGATIVE) Meds: Medications Generic Name Dose Route Start Last Admin Trade Name Freq PRN Reason Stop Dose Admin Phytonadione 10 mg/ Sodium 51 mls @ 100 mls/hr 05/19/20 10:03 Chloride IV 05/19/20 10:33 NOW ONE - Re-Assessments/Exams Free Text/Narrative Re-Assessment/Exam: 05/19/20 10:18 Discussed code status with the patient's and daughter. They agreed to do everything at this time to make further decisions while in [place]. 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 Adamson (ED Physician at [facility] in [place]). Dr. Adamson advised to give FFP (2 units) and Vitamin K at this time. The patient will be transported by [facility]. Sepsis Event Note (ED) - Focused Exam Vital Signs: Vital Signs Temp Pulse Resp BP Pulse Ox 05/19/20 09:30 36.1 C 62 18 120/76 100 - My Orders Last 24 Hours: My Active Orders 05/19/20 09:18 EKG Documentation Completion [RC] STAT ACETAMINOPHEN [CHEM] Stat AMMONIA VENOUS [CHEM] Stat AMYLASE [CHEM] Stat COMPREHENSIVE METABOLIC PN,CMP [CHEM] Stat CULTURE BLOOD [BC] Stat ETHANOL BLOOD MEDICAL [CHEM] Stat LACTIC ACID [CHEM] Stat LIPASE [CHEM] Stat TROPONIN I [CHEM] Stat 05/19/20 09:20 Glucose [Blood Glucose Check, Bedside] [RC] ONETIME 05/19/20 09:30 CORONAVIRUS COVID-19 ANA [MOLEC] Urgent CULTURE URINE [RM] Stat 05/19/20 09:48 INR,PT,PROTHROMBIN TIME [COAG] Stat 05/19/20 10:03 ABO/RH TYPE [BBK] Stat FRESH FROZEN PLASMA [BBK] Stat Phytonadione [AquaMephyton] 10 mg Sodium Chloride 0.9% [Normal Saline] 50 ml IV NOW - Assessment/Plan Last 24 Hours: My Active Orders 05/19/20 09:18 EKG Documentation Completion [RC] STAT ACETAMINOPHEN [CHEM] Stat AMMONIA VENOUS [CHEM] Stat AMYLASE [CHEM] Stat COMPREHENSIVE METABOLIC PN,CMP [CHEM] Stat CULTURE BLOOD [BC] Stat ETHANOL BLOOD MEDICAL [CHEM] Stat LACTIC ACID [CHEM] Stat LIPASE [CHEM] Stat TROPONIN I [CHEM] Stat 05/19/20 09:20 Glucose [Blood Glucose Check, Bedside] [RC] ONETIME 05/19/20 09:30 CORONAVIRUS COVID-19 ANA [MOLEC] Urgent CULTURE URINE [RM] Stat 05/19/20 09:48 INR,PT,PROTHROMBIN TIME [COAG] Stat 05/19/20 10:03 ABO/RH TYPE [BBK] Stat FRESH FROZEN PLASMA [BBK] Stat Phytonadione [AquaMephyton] 10 mg Sodium Chloride 0.9% [Normal Saline] 50 ml IV NOW
--- NOTE | 2020-05-19 10:14 | CT ---
PROCEDURE INFORMATION: Exam: CT Head Without Contrast Exam date and time: 05/19/2020 9:39 AM Age: 79 years old Clinical indication: Altered mental status/memory loss; Confusion or disorientation; Additional info: CVA TECHNIQUE: Imaging protocol: Computed tomography of the head without contrast. Radiation optimization: All CT scans at this facility use at least one of these dose optimization techniques: automated exposure control; mA and/or kV adjustment per patient size (includes targeted exams where dose is matched to clinical indication); or iterative reconstruction. Other technique: STROKE PROTOCOL was implemented. COMPARISON: CT HEAD 07/21/2011 2:20 PM FINDINGS: Brain: Interval 4.5 x 4.3 x 4.5 cm (or 44 ml) right basal ganglia/thalamic parenchymal hemorrhage. Interval right to left shift of 5-6 mm. Interval mass affect on basilar cisterns. Similar atrophy and chronic small vessel ischemia. Cerebral ventricles: Interval intraventricular extension of moderate blood in right ventricular system. Interval hydrocephalus. Bones/joints: Normal calvarium. Paranasal sinuses: Minimal sinus disease. Mastoid air cells: Unchanged normal mastoids. Unchanged high-riding right jugular bulbs. Orbital cavity: Unchanged remote cataract surgical findings. Soft tissues: Normal IMPRESSION: 1. Interval large right basal ganglia/thalamic parenchymal hemorrhage-likely hypertensive, hemorrhagic infarct. Differential includes less likely possibilities of amyloid angiopathy or bleed from underlying vascular malformation. 2. Interval intraventricular hemorrhage with mild hydrocephalus. 3. Interval mild right to left midline shift. ASSESSMENT: ASPECTS (Amber Stroke Program Early CT Score) does not apply with hemorrhage. Approximately 44 ml volume bleed.
[2020-05-19] MEDS: Phytonadione 10 MG in Sodium Chloride 0.9% 50 ML IV ONE (10:21)
[2020-05-19 10:23] LABS: ANION GAP 15.6 mEq/L (7-13); CHLORIDE,CL 104 mmol/L (98-107); SODIUM,NA 142 mmol/L (136-145)
--- NOTE | 2020-05-19 11:13 | CR ---
PROCEDURE INFORMATION: Exam: XR Chest, 1 View Exam date and time: 05/19/2020 10:59 AM Age: 79 years old Clinical indication: Device placement; Ett placement (vent status); Additional info: Intubation TECHNIQUE: Imaging protocol: XR of the chest Views: 1 view. COMPARISON: CR Chest 2V 04/08/2019 9:32 PM FINDINGS: Tubes, catheters and devices: Interval monitor leads. Lungs: Bibasilar consolidations and atelectasis. Pleural space: Interval suspected bilateral pleural effusions. No pneumothorax. Heart/Mediastinum: Unchanged borderline heart size. Unchanged prominent central PAs or pulmonary HTN. Bones/joints: Interval total left shoulder arthroplasty is partially imaged. Unchanged bones. Other findings: Interval metallic densities project over the epigastric region and thoracic inlet, likely outside the patient. IMPRESSION: 1. Interval bibasilar consolidations and possible pleural effusions. 2. Unchanged borderline heart size and prominent pulmonary arteries. See report body. 3. Interval metallic densities, likely outside patient at cervicothoracic and thoracoabdominal junctions. 4. Partially imaged interval total left shoulder arthroplasty.
[2020-05-19 11:19] LABS: ACETAMINOPHEN 0 ug/mL (10-30 (Therapeutic))
== END 2020-05-19 11:39 ==
LOC: DL.ED 09:16
DX: I61.9 Nontraumatic intracerebral hemorrhage, unspecified (principal); E78.00 Pure hypercholesterolemia, unspecified; F41.9 Anxiety disorder, unspecified; I12.0 Hypertensive chronic kidney disease with stage 5 chronic kidney disease or end stage renal disease; N18.6 End stage renal disease; Z88.6 Allergy status to analgesic agent; Z79.82 Long term (current) use of aspirin; Z79.899 Other long term (current) drug therapy
CPT/HCPCS: 36415; 36430; 70450; 71045; 80053; 80305; 80307; 81001; 82140; 82150; 82962; 83605; 83690; 84484; 85025; 85610; 86900; 86901; 87040; 87086; 87088; 87186; 93005; 96365; 99285; J3430; P9017; U0002; 99284